=== PATIENT | female | born 1955 | race Caucasian/White ===

== ENCOUNTER 2021-05-09 12:48 | Inpatient (IN) ==
[2021-05-09] MEDS ORDERED: IOPAMIDOL 100 ML BOTTLE IV ONE (12:49)
[2021-05-09] MEDS ORDERED: ACETAMINOPHEN 325 MG TABLET PO ONE (13:09)
--- NOTE | 2021-05-09 13:11 | Emergency Department Note ---
SOB HPI General Chief Complaint: Shortness of Breath/Dyspnea Stated Complaint: shortness of breath, low O2 sats Time Seen by Provider: 05/09/21 13:01 Source: patient Mode of arrival: wheelchair Limitations: no limitations History of Present Illness HPI Narrative: 66-year-old female with no past medical history presenting with shortness of breath. She states over the last 3 days she has gotten more progressively short of breath with associated chills and a nonproductive cough. Denies chest pain. No sick contacts. She went to urgent care today and was noted to be hypoxic so sent to the ED. Patient has not received the Covid vaccine. Denies any prior heart or lung problems. No headache, neck pain, back pain, abdominal pain, dysuria, or leg swelling. No recent travel. Non-smoker, no drug or alcohol use. Her reportedly tested positive for Covid recently. Related Data Home Medications Medication Instructions Recorded Confirmed aspirin 81 mg tablet,delayed 81 mg PO QDAY 05/23/19 05/09/21 release calcium carbonate 600 mg calcium 600 mg PO QDAY 05/23/19 05/09/21 (1,500 mg) tablet cholecalciferol (vitamin D3) 10 400 unit PO QDAY 05/23/19 05/09/21 mcg (400 unit) capsule vitamin B complex 1 tab PO QDAY 05/23/19 05/09/21 Previous Rx's Medication Instructions Recorded levothyroxine 25 mcg tablet 25 mcg PO QDAY #90 tab 04/06/21 lisinopril 10 mg tablet 10 mg PO QAM #30 tab 04/20/21 Allergies Allergy/AdvReac Type Severity Reaction Status Date / Time No Known Drug Allergies Allergy Unknown NONE Verified 05/09/21 12:53 [NO KNOWN DRUG ALLERGIES] Review of Systems ROS ROS Narrative: Narrative: Constitutional: Reports fever and chills Eyes: Denies vision change ENT ED: Denies ear pain and throat pain Cardiovascular: Denies chest pain and palpitations Respiratory: Reports shortness of breath and cough; Denies hemoptysis Gastrointestinal: Denies abdominal pain, nausea and vomiting Genitourinary: Denies dysuria and frequency Musculoskeletal: Denies back pain and joint swelling Integumentary: Denies rash and lesions Neurological: Denies headache and weakness Psychiatric: Denies anxiety and depression Endocrine: Denies fatigue and heat or cold intolerance Hematological/Lymphatic: Denies easy bleeding and easy bruising REPLACED BY [facility] Narrative Patient History Narrative: Narrative: Medical/Surgical/Family History All Active Problems (Updated 05/09/21 @ 16:52 by Jeff Kramer MD) Bilateral pneumonia (Acute) Hypoxia (Acute) Hypoxia (Acute) HTN (hypertension) (Chronic) Routine physical examination (Chronic) Skin lesion (Chronic) Weight gain (Chronic) Hyperlipidemia (Chronic) Hypothyroidism (Chronic) Actinic keratosis (Chronic) Candidiasis of skin and nails (Chronic) Medical History (Updated 05/09/21 @ 16:52 by Jeff Kramer MD) Actinic keratosis Candidiasis of skin and nails HTN (hypertension) Hyperlipidemia Hypothyroidism Routine physical examination Skin lesion Weight gain Surgical History History of colonoscopy (~10/20/18) Colonic Polyp History of D&C (~2007) Abnormal pap Family History Mother Asthma Father High blood pressure Grandmother Diabetes Grandfather Asthma Grandmother High blood pressure Social History Smoking Status: Never smoker Alcohol Intake Frequency: does not drink Substance Use: does not use Exam Narrative Narrative: Narrative: General Limitations: no limitations General appearance: Present alert and other (In mild respiratory distress) Head Head: Present atraumatic and normocephalic Eye Eye: Present normal appearance, PERRL and EOMI; Absent scleral icterus and con junctival injection ENT ENT: Present normal oropharynx and mucous membranes moist Neck Neck: Present full ROM and trachea midline; Absent meningismus, lymphadenopathy and thyromegaly Chest Chest: Present symmetric chest wall rise Respiratory Respiratory: Present respiratory distress and other (Coarse breath sounds bilaterally); Absent wheezes, stridor, accessory muscle use and prolonged expiratory phase Cardiovascular Cardiovascular: Present regular rate and normal rhythm; Absent systolic murmur and diastolic murmur Adbominal Abdominal: Present soft; Absent distention, tenderness, guarding, rebound, rigidity, organomegaly and mass Extremities Extremities: Absent pedal edema, pretibial edema and calf tenderness Back Back: Absent CVA tenderness (R), CVA tenderness (L) and spinous process tenderness Neurological Neurological: Present alert and oriented X3 Psychiatric Psychiatric: Present normal affect and normal mood Skin Skin: Present warm (WNL) and dry Course Vital Signs Vital signs: Vital Signs Temperature 101.4 F H 05/09/21 12:49 Pulse Rate 99 H 05/09/21 12:49 Respiratory Rate 30 H 05/09/21 12:49 Blood Pressure 137/74 05/09/21 12:49 Pulse Oximetry (%) 54 L 05/09/21 12:49 Temperature 101.4 F H 05/09/21 14:05 Pulse Rate 77 05/09/21 15:31 Respiratory Rate 25 H 05/09/21 15:31 Blood Pressure 109/57 05/09/21 15:31 Pulse Oximetry (%) 94 05/09/21 15:31 MDM MDM Narrative Medical decision making narrative: 66-year-old female presenting with dyspnea. On arrival to the ED she was hypoxic to 54 and febrile to 101.4F. Her saturations improved to 92% on O2 via facemask. Will obtain labs, chest x-ray, Covid and flu swabs, and reassess. Persistent hypoxia in the ED, patient transition to high flow nasal cannula and is now stable with saturations in the low to mid 90s. Chest x-ray shows bilateral pneumonia. CT chest shows no evidence of PE but is also consistent with bilateral pneumonia. Influenza and rapid Covid test are negative. Labs within normal limits. Covid PCR testing is pending. Patient covered with 1 g Rocephin and 500 mg of azithromycin IV. Plan for admission given persistent hypoxia. Discussed with admitting hospitalist, Dr. Iglesias. Lab Data Lab results reviewed: Yes I reviewed the patient's lab results. Result diagrams: 05/09/21 13:09 05/09/21 13:08 Labs: Lab Results 05/09/21 05/09/21 05/09/21 Range/Units 13:08 13:08 13:09 WBC 7.4 (4.5-11.0) K/mcL RBC 4.71 (3.59-5.38) M/mcL Hgb 13.6 (11.2-15.7) g/dL Hct 41.1 (34.1-44.9) % MCV 87.3 (80.0-100.0) fL MCH 28.9 (26.0-34.0) pg MCHC 33.1 (31.0-36.0) g/dL RDW 13.1 (11.5-14.5) % Plt Count 196 (140-440) K/mcL MPV 11.4 H (7.4-10.4) fL Neut % (Auto) 77.4 (38.0-78.0) % Lymph % (Auto) 14.8 L (15.5-49.0) % [place] % (Auto) 7.4 (1.0-12.0) % Eos % (Auto) 0.1 (0.0-7.0) % Baso % (Auto) 0.3 (0.0-2.0) % Lymph # (Auto) 1.10 L (1.50-4.80) K/mcL [place] # (Auto) 0.55 (0.10-0.90) K/mcL Eos # (Auto) 0.01 (0.00-0.70) K/mcL Baso # (Auto) 0.02 (0.00-0.30) K/mcL Absolute Neutrophils 5.76 (1.80-8.00) K/mcL VBG Lactic Acid 1.5 (0.5-2.0) mmol/L Sodium 133 (133-145) mmol/L Potassium 3.4 (3.3-5.1) mmol/L Chloride 95 L (96-108) mmol/L Carbon Dioxide 24 (22-30) mmol/L Anion Gap 14.0 (8.0-16.0) BUN 12 (8-23) mg/dL Creatinine 0.6 (0.6-1.1) mg/dL GFR Calculation 96 Glucose 134 H (70-105) mg/dL Calcium 8.7 (8.6-10.4) mg/dL Total Bilirubin 0.8 (0.1-1.0) mg/dL AST 110 H (<32) U/L ALT 95 H (<40) U/L Alkaline Phosphatase 86 (39-117) U/L Total Protein 7.2 (5.9-8.4) gm/dL Albumin 3.6 (3.2-5.2) gm/dL Globulin 3.6 (2.2-3.7) gm/dL Albumin/Globulin Ratio 1.0 (1.0-2.3) ED POC Tests ED POC Tests: KERRI - Influenza A Negative KERRI - Influenza B Negative KERRI - SARS Antigen Negative Radiology Data Radiology results reviewed: Yes I reviewed the patient's radiology results. Radiology results narrative: HISTORY: Hypoxia FINDINGS: Moderately severe diffuse alveolar infiltrates are present throughout both lungs. Right diaphragm is moderately elevated. There is no pneumothorax or pleural effusion. The heart size is normal. The cathy are obscured by surrounding consolidated lung parenchyma. IMPRESSION: Moderately severe bilateral pneumonia Interpreted and Authenticated by: Kristian Nunn 05/09/21 1527 [id number] Corporate Associate: <Electronically signed by Kristian Nunn M.D. in OV> 05/09/21 1528 Ordering Physician: Jeff Kramer M.D. Date of Service: 05/09/21 Procedure(s): CT angio chest Accession Number(s): [id number] History: Hypoxia, short of breath TECHNIQUE: Following injection of intravenous nonionic contrast the chest was scanned during the arterial phase. Sagittal, coronal and axial MIPS images were created. The radiation exposure was limited using dose reduction technology. FINDINGS: The pulmonary arteries are normal without evidence of emboli. The aorta is normal in caliber. There is no atherosclerotic disease, dissection or aneurysm. The heart is normal in size and contour. There are moderately severe diffuse bilateral groundglass alveolar infiltrates. These have a mosaic distribution. There is involvement in all lobes. No pleural effusion is present. There are a few reactive lymph nodes in the mediastinum and both cathy. Moderate fatty infiltration is present throughout the liver. There is a noncalcified 1.4 cm stone in the lumen of the gallbladder. IMPRESSION: Moderately severe bilateral pneumonia. The pattern is suggestive of Covid pneumonia. No evidence of pulmonary emboli Fatty infiltration of the liver Dr. Kramer was called with the report Interpreted and Authenticated by: Kristian Nunn 05/09/21 EKG Data EKG #1: EKG attestation: Yes I reviewed and interpreted this EKG. and Yes There are no EKG findings of acute coronary syndrome EKG results narrative: Normal sinus rhythm at [address] elevation or depression. Interpretation: no acute changes Pulse Oximetry Data Pulse Ox %: 92 Interpretation: On O2 via facemask. Discharge Plan Patient/Caregiver Discharge Instructions Pt seen by BAKER BENCH/PA only: No Clinical Impression: Bilateral pneumonia, Hypoxia Patient Disposition: Xfer As Inpt ([facility]) Condition: Fair Follow up with: Vanessa Montez ARNP [Primary Care Provider] - Prescriptions: No Action vitamin B complex [B Complex 1] tablet 1 tab PO QDAY RF: 0 aspirin 81 mg tablet,delayed release (DR/EC) 81 mg PO QDAY RF: 0 cholecalciferol (vitamin D3) 400 unit capsule 400 unit capsule 400 unit PO QDAY RF: 0 calcium carbonate 600 mg calcium (1,500 mg) tablet 600 mg PO QDAY RF: 0 lisinopril 10 mg tablet 10 mg PO QAM Qty: 30 RF: 1 levothyroxine 25 mcg tablet 25 mcg PO QDAY Qty: 90 RF: 0
[2021-05-09 13:58] LABS: ALT/SGPT 95 U/L (<40); AST/SGOT 110 U/L (<32); Albumin 3.6 gm/dL (3.2-5.2); Alkaline Phosphatase 86 U/L (39-117); Bilirubin,Total 0.8 mg/dL (0.1-1.0); Blood Urea Nitrogen 12 mg/dL (8-23); Calcium 8.7 mg/dL (8.6-10.4); Carbon Dioxide 24 mmol/L (22-30); Chloride 95 mmol/L (96-108); Globulin 3.6 gm/dL (2.2-3.7); Glomerular Filtration Rate 96; Glucose 134 mg/dL (70-105)
[2021-05-09 14:21] LABS: Basophils # (Auto) 0.02 K/mcL (0.00-0.30); Basophils % (Auto) 0.3 % (0.0-2.0); Eosinophils # (Auto) 0.01 K/mcL (0.00-0.70); Eosinophils % (Auto) 0.1 % (0.0-7.0); Hematocrit 41.1 % (34.1-44.9); Hemoglobin 13.6 g/dL (11.2-15.7); Lymphocytes % (Auto) 14.8 % (15.5-49.0); Mean Cell Volume 87.3 fL (80.0-100.0); Mean Corpuscular HGB Conc 33.1 g/dL (31.0-36.0); Mean Platelet Volume 11.4 fL (7.4-10.4); Monocytes # (Auto) 0.55 K/mcL (0.10-0.90); Monocytes % (Auto) 7.4 % (1.0-12.0); Neutrophils % (Auto) 77.4 % (38.0-78.0); Platelet Count 196 K/mcL (140-440); RBC 4.71 M/mcL (3.59-5.38); Red Cell Distribution Width 13.1 % (11.5-14.5); WBC 7.4 K/mcL (4.5-11.0)
--- NOTE | 2021-05-09 15:22 | Cat Scan Report ---
History: Hypoxia, short of breath TECHNIQUE: Following injection of intravenous nonionic contrast the chest was scanned during the arterial phase. Sagittal, coronal and axial MIPS images were created. The radiation exposure was limited using dose reduction technology. FINDINGS: The pulmonary arteries are normal without evidence of emboli. The aorta is normal in caliber. There is no atherosclerotic disease, dissection or aneurysm. The heart is normal in size and contour. There are moderately severe diffuse bilateral groundglass alveolar infiltrates. These have a mosaic distribution. There is involvement in all lobes. No pleural effusion is present. There are a few reactive lymph nodes in the mediastinum and both cathy. Moderate fatty infiltration is present throughout the liver. There is a noncalcified 1.4 cm stone in the lumen of the gallbladder. IMPRESSION: Moderately severe bilateral pneumonia. The pattern is suggestive of Covid pneumonia. No evidence of pulmonary emboli Fatty infiltration of the liver Dr. Kramer was called with the report Interpreted and Authenticated by: Kristian Nunn 05/09/21
--- NOTE | 2021-05-09 15:32 | XRay Report ---
HISTORY: Hypoxia FINDINGS: Moderately severe diffuse alveolar infiltrates are present throughout both lungs. Right diaphragm is moderately elevated. There is no pneumothorax or pleural effusion. The heart size is normal. The cathy are obscured by surrounding consolidated lung parenchyma. IMPRESSION: Moderately severe bilateral pneumonia Interpreted and Authenticated by: Kristian Nunn 05/09/21
[2021-05-09] MEDS ORDERED: AZITHROMYCIN 500 MG in DEXTROSE 5% IN WATER 250 ML IV ONE (15:35)
[2021-05-09] MEDS ORDERED: cefTRIAXone 1 GM VIAL IV ONE (15:35)
--- NOTE | 2021-05-09 18:23 | Internal Med History&Physical ---
HPI History of Present Illness Patient information: Note initiated : 05/09/21 at 6:23 pm Service Date, if different from initiated Date: [] Patient: Nelly Villegas a 66 y/o F admitted on for shortness of breath, low O2 sats. Chief Complaint: dyspnea History of present illness: Ms. Villegas is a 66 year old F with a history of hypertension, hypothyroidism, untreated hyperlipidemia who presents to the hospital with worsening dyspnea. History is obtained in discussing with the patient as well as the ED physician. The patient states she started feeling ill about 10/5 initially with mild URI type symptoms. A few days later she had significant myalgias as well as shortness of breath. Her had similar symptoms and he eventually tested positive for COVID-19. She feels like she is never recovered from that episode. However over the last few days she has become more dyspneic, having a cough that has been unproductive of sputum. Because of the ongoing dyspnea she presented to minor care where her sats were in the 50% range. She is referred to the ED. Oxygen saturations were 70% on room air. She is placed on facemask with saturations into the low 90s. Further evaluation in the ED revealed normal white count, normal renal function. Chest x-ray showed bilateral infiltrates and CT of the chest again redemonstrated bilateral pneumonia without pulmonary emboli. SARS-CoV-2 rapid antigen was negative as was Roel PCR. Patient is noted she has lost her sense of taste and smell, has not returned. She has cough without sputum and dyspnea at rest and with exertion. She has had no diarrhea or abdominal pain. No headache, sore throat, vision changes, chest pain or tightness, lower extremity edema, dysuria, easy bruising or bleeding. Review of Systems All systems: reviewed and no additional remarkable complaints except as stated PFSH PFSH All Active Problems (Updated 05/09/21 @ 16:52 by Jeff Kramer MD) Bilateral pneumonia (Acute) Hypoxia (Acute) Hypoxia (Acute) HTN (hypertension) (Chronic) Routine physical examination (Chronic) Skin lesion (Chronic) Weight gain (Chronic) Hyperlipidemia (Chronic) Hypothyroidism (Chronic) Actinic keratosis (Chronic) Candidiasis of skin and nails (Chronic) Medical History (Updated 05/09/21 @ 16:52 by Jeff Kramer MD) Actinic keratosis Candidiasis of skin and nails HTN (hypertension) Hyperlipidemia Hypothyroidism Routine physical examination Skin lesion Weight gain Surgical History History of colonoscopy (~10/20/18) Colonic Polyp History of D&C (~2007) Abnormal pap Family History Mother Asthma Father High blood pressure Grandmother Diabetes Grandfather Asthma Grandmother High blood pressure Social History marital status: physical activity: walking frequency: 3-4 times per week alcohol intake frequency: does not drink substance use type: does not use seatbelt use: always MEDS/ALLERGIES Home Medications and Allergies Home Medications Medication Instructions Recorded Confirmed Type aspirin 81 mg tablet,delayed 81 mg PO QDAY 05/23/19 05/09/21 History release calcium carbonate 600 mg calcium 600 mg PO QDAY 05/23/19 05/09/21 History (1,500 mg) tablet cholecalciferol (vitamin D3) 10 400 unit PO QDAY 05/23/19 05/09/21 History mcg (400 unit) capsule vitamin B complex 1 tab PO QDAY 05/23/19 05/09/21 History levothyroxine 25 mcg tablet 25 mcg PO QDAY #90 tab 04/06/21 05/09/21 Rx lisinopril 10 mg tablet 10 mg PO QAM #30 tab 04/20/21 05/09/21 Rx Allergies Allergy/AdvReac Type Severity Reaction Status Date / Time No Known Drug Allergies Allergy Unknown NONE Verified 05/09/21 12:53 [NO KNOWN DRUG ALLERGIES] EXAM Constitutional Vitals: Temp Pulse Resp BP Pulse Ox 101.4 F H 72 18 105/65 90 05/09/21 14:05 05/09/21 18:16 05/09/21 18:16 05/09/21 18:16 05/09/21 18:16 GENERAL: Alert, oriented, looks comfortable on [facility]. HEENT: Pupils equal at 3 mm, conjunctiva clear, no scleral icterus. Hearing grossly intact. Oropharynx with moist mucous membranes, tongue midline. NECK: Supple without meningismus, no thyromegaly RESPIRATORY: Crackles bilaterally in upper and lower lung nunez, respirations mildly labored.. CARDIOVASCULAR: Regular rate and rhythm, no murmur gallop or rub. No peripheral edema. Carotid pulses 2+. GI: Abdomen soft, nontender, no guarding or rebound. Bowel sounds are present. MUSCULOSKELETAL: No joint erythema or swelling, normal range of motion in all extremities. SKIN: Intact, warm, dry. No lesions. Skin turgor decreased. NEUROLOGIC: Cranial nerves II through XII grossly intact. Muscle mass normal. Strength 5/5 in the upper and lower extremities. Sensation intact to light touch bilaterally. PSYCHIATRIC: Alert, oriented x3, normal mood and affect, normal insight. DATA Data Completed and Pending Labs: Labs from last 24 hours 05/09/21 05/09/21 05/09/21 13:09 13:08 13:08 WBC 7.4 RBC 4.71 Hgb 13.6 Hct 41.1 MCV 87.3 MCH 28.9 MCHC 33.1 RDW 13.1 Plt Count 196 MPV 11.4 H Neut % (Auto) 77.4 Lymph % (Auto) 14.8 L [place] % (Auto) 7.4 Eos % (Auto) 0.1 Baso % (Auto) 0.3 Lymph # (Auto) 1.10 L [place] # (Auto) 0.55 Eos # (Auto) 0.01 Baso # (Auto) 0.02 Absolute Neutrophils 5.76 VBG Lactic Acid Sodium Potassium Chloride Carbon Dioxide Anion Gap BUN Creatinine GFR Calculation Glucose Calcium Total Bilirubin AST ALT Alkaline Phosphatase C-Reactive Protein Pending Total Protein Albumin Globulin Albumin/Globulin Ratio Procalcitonin Pending 05/09/21 05/09/21 13:08 13:08 WBC RBC Hgb Hct MCV MCH MCHC RDW Plt Count MPV Neut % (Auto) Lymph % (Auto) [place] % (Auto) Eos % (Auto) Baso % (Auto) Lymph # (Auto) [place] # (Auto) Eos # (Auto) Baso # (Auto) Absolute Neutrophils VBG Lactic Acid 1.5 Sodium 133 Potassium 3.4 Chloride 95 L Carbon Dioxide 24 Anion Gap 14.0 BUN 12 Creatinine 0.6 GFR Calculation 96 Glucose 134 H Calcium 8.7 Total Bilirubin 0.8 AST 110 H ALT 95 H Alkaline Phosphatase 86 C-Reactive Protein Total Protein 7.2 Albumin 3.6 Globulin 3.6 Albumin/Globulin Ratio 1.0 Procalcitonin Imaging and Cardiology CT scan - chest: Status: image reviewed by me Additional comments: IMPRESSION: Moderately severe bilateral pneumonia. The pattern is suggestive of Covid pneumonia. No evidence of pulmonary emboli Fatty infiltration of the liver A/P Narrative A/P Narrative: 66-year-old female presents with worsening dyspnea, acutely over the last 3 days, found to be significantly hypoxic with bilateral pneumonia worrisome for COVID-19 Pneumonia, suspected to COVID-19 -Bilateral groundglass opacities -Clinically loss of taste and smell and prior symptoms consistent with COVID-19 -Negative rapid antigen and PCR, though with symptom onset 04/14, may have cleared nasopharyngeal virus -Less concern for concurrent bacterial pneumonia with procalcitonin 0.13 -Given duration of illness, remdesivir likely not helpful -As COVID-19 pneumonia highly suspected, dexamethasone would benefit -Covering for community-acquired pneumonia and atypicals as well Transaminitis -AST and ALT mildly elevated -Suspect secondary to COVID-19 infection Hypertension -On lisinopril at home, no indication to hold [place] inhibitors and COVID-19 Hypothyroidism -On levothyroxine Elevated glucose without diagnosis of diabetes -Noted on admission chemistries -May be secondary to stress -We will need to monitor with glucocorticoid treatment Plan: Inpatient admission Respiratory support with HFNC and/or BiPAP as needed Begin dexamethasone 6 mg daily Continue ceftriaxone and azithromycin Lower threshold to stop antibiotics if procalcitonin remains <0.5 If less concern for bacterial infection, consider tocilizumab if worsening Monitor glucose on a.m. chemistries, if significant elevated begin Accu-Cheks and SSI Prophylaxis: Enoxaparin CODE STATUS: Full code
[2021-05-09] MEDS ORDERED: SENNOSIDES 1 TABLET PO PRN (20:24)
[2021-05-09] MEDS ORDERED: ONDANSETRON 4 MG/2 ML VIAL IV PRN (20:24)
[2021-05-09] MEDS ORDERED: cefTRIAXone 1 GM in DEXTROSE 5% IN WATER 50 ML IV SCH (20:24)
[2021-05-09] MEDS ORDERED: LACTULOSE 20 GM/30 ML ORAL.SOL PO PRN (20:24)
[2021-05-09] MEDS: 0.9 % SODIUM CHLORIDE 1,000 ML IV SCH (21:20)
[2021-05-09] MEDS: DEXAMETHASONE 10 MG/ML VIAL IV SCH (21:20)
[2021-05-09] MEDS: 0.9 % SODIUM CHLORIDE 10 ML SYRINGE IV SCH (21:20)
[2021-05-09] MEDS ORDERED: guaiFENesin/DEXTROMETHORPHAN ORAL SOL ONE (23:13)
[2021-05-09] MEDS: BENZONATATE 100 MG CAPSULE PO PRN (23:22)
[2021-05-09] MEDS: guaiFENesin/CODEINE 10 ML UDC PO PRN (23:23)
[2021-05-10] MEDS ORDERED: guaiFENesin/DEXTROMETHORPHAN ORAL SOL ONE (05:13)
[2021-05-10] MEDS: 0.9 % SODIUM CHLORIDE 10 ML SYRINGE IV SCH ×4 (06:18→20:02)
[2021-05-10] MEDS: guaiFENesin/CODEINE 10 ML UDC PO PRN ×2 (06:18→20:01)
[2021-05-10 06:53] LABS: Basophils # (Auto) 0.01 K/mcL (0.00-0.30); Basophils % (Auto) 0.2 % (0.0-2.0); Eosinophils # (Auto) 0 K/mcL (0.00-0.70); Eosinophils % (Auto) 0 % (0.0-7.0); Lymphocytes % (Auto) 10.7 % (15.5-49.0); Mean Cell Volume 88.5 fL (80.0-100.0); Mean Corpuscular HGB Conc 32.5 g/dL (31.0-36.0); Mean Platelet Volume 11.1 fL (7.4-10.4); Monocytes # (Auto) 0.21 K/mcL (0.10-0.90); Monocytes % (Auto) 3.2 % (1.0-12.0); Neutrophils % (Auto) 85.9 % (38.0-78.0); Platelet Count 211 K/mcL (140-440); RBC 4.52 M/mcL (3.59-5.38); WBC 6.6 K/mcL (4.5-11.0)
[2021-05-10 07:16] LABS: ALT/SGPT 130 U/L (<40); AST/SGOT 154 U/L (<32); Albumin 3.3 gm/dL (3.2-5.2); Albumin/Globulin Ratio 0.9 (1.0-2.3); Alkaline Phosphatase 91 U/L (39-117); Bilirubin,Direct 0.2 mg/dL (<0.3); Bilirubin,Total 0.6 mg/dL (0.1-1.0); Blood Urea Nitrogen 12 mg/dL (8-23); Calcium 8.8 mg/dL (8.6-10.4); Carbon Dioxide 25 mmol/L (22-30); Chloride 98 mmol/L (96-108); Globulin 3.5 gm/dL (2.2-3.7); Glomerular Filtration Rate 101; Glucose 159 mg/dL (70-105); Lactate Dehydrogenase 536 U/L (135-225); Phosphorous 2.3 mg/dL (2.5-4.5); Triglycerides 77 mg/dL (<150); Uric Acid 4.6 mg/dL (2.5-8.0)
[2021-05-10] MEDS: cefTRIAXone 1 GM VIAL IV SCH (08:05)
[2021-05-10] MEDS: ENOXAPARIN 40 MG/0.4 ML SYRINGE SQ SCH (08:05)
[2021-05-10] MEDS: PANTOPRAZOLE 40 MG TABLET PO SCH (08:05)
[2021-05-10] MEDS: LISINOPRIL 10 MG TABLET PO SCH (08:05)
[2021-05-10] MEDS: LEVOTHYROXINE 25 MCG TABLET PO SCH (08:05)
--- NOTE | 2021-05-10 08:09 | Internal Med Progress Note ---
SUBJECTIVE Subjective Patient information: Note initiated : 05/10/21 at 8:09 am Service Date, if different from initiated Date: [] Patient: Nelly Villegas 66 y/o F admitted on 05/09/21 for shortness of breath, low O2 sats. Chief Complaint: Follow-up presumptive COVID-19 pneumonia and acute respiratory failure Interval history: Ms. Villegas is a 66 year old F with a history of hypertension, hypothyroidism, untreated hyperlipidemia who presents to the hospital with worsening dyspnea. History is obtained in discussing with the patient as well as the ED physician. The patient states she started feeling ill about 10/5 initially with mild URI type symptoms. A few days later she had significant myalgias as well as shortness of breath. Her had similar symptoms and he eventually tested positive for COVID-19. She feels like she is never recovered from that episode. However over the last few days she has become more dyspneic, having a cough that has been unproductive of sputum. Because of the ongoing dyspnea she presented to minor care where her sats were in the 50% range. She is referred to the ED. Oxygen saturations were 70% on room air. She is placed on facemask with saturations into the low 90s. Further evaluation in the ED revealed normal white count, normal renal function. Chest x-ray showed bilateral infiltrates and CT of the chest again redemonstrated bilateral pneumonia without pulmonary emboli. SARS-CoV-2 rapid antigen was negative as was Roel PCR. Patient is noted she has lost her sense of taste and smell, has not returned. She has cough without sputum and dyspnea at rest and with exertion. She has had no diarrhea or abdominal pain. No headache, sore throat, vision changes, chest pain or tightness, lower extremity edema, dysuria, easy bruising or bleeding. 05/09: Patient remained on BiPAP overnight, currently 15/8 at 80% FiO2. Procalcitonin remains <0.5 this morning, as it was yesterday. C-reactive protein remains greater than 12. [place] SARS-CoV-2 assay is pending. Patient still with dyspnea, particularly with exertion. Trying to prone, though it has been difficult. Cough, no sputum, no chest pain. No nausea. Tolerating BiPAP. Constitutional Vitals: Vital Signs Temp Pulse Resp BP Pulse Ox 98.4 F 80 25 H 115/71 90 05/10/21 04:00 05/10/21 06:59 05/10/21 06:59 05/10/21 05:12 05/10/21 06:59 Period Temp Pulse Resp BP Sys/Farias Pulse Ox Last 24 Hr 98.3 F-101.4 F 66-99 13-36 95-143/53-93 54-95 Intake and Output 05/09/21 05/10/21 05/10/21 21:59 05:59 13:59 Intake Total 250 240 0 Output Total 302 Balance 250 -62 0 Weight 188 lb 14.4 oz Intake & Output: Intake & Output 05/09/21 05/10/21 05/10/21 21:59 05:59 13:59 Intake Total 250 240 0 Output Total 302 Balance 250 -62 0 Weight 188 lb 14.4 oz Intake: IV 250 Zithromax 500 mg In Dextrose 5% 250 in Water 250 ml @ 250 mls/hr IV ONCE ONE Rx#:[id number] Oral 240 0 Output: Void Amount 300 # of times incontinent of urine 2 Other: Urine Appearance Clear Urine Color Dark Susy Urine Odor Strong GENERAL: In bed on BiPAP, nontoxic-appearing RESPIRATORY: Bilateral crackles in all lung nunez, respirations assisted with BiPAP CARDIOVASCULAR: Regular rate and rhythm, no peripheral edema ABDOMEN: Soft, nontender EXTREMITIES: Warm, perfused, no edema NEURO: Alert, oriented x3, moves all extremities OBJ DATA Labs CBC & Chem 7: 05/10/21 05:02 05/10/21 05:02 Labs: Abnormal Lab Results 05/10/21 05/10/21 05/10/21 05:03 05:02 05:02 MPV 11.1 H Neut % (Auto) 85.9 H Lymph % (Auto) 10.7 L Lymph # (Auto) 0.70 L Chloride Creatinine 0.5 L Glucose 159 H Phosphorus 2.3 L GGT 63 H AST 154 H ALT 130 H Lactate Dehydrogenase 536 H C-Reactive Protein 12.20 H Albumin/Globulin Ratio 0.9 L Procalcitonin 0.13 H 05/09/21 05/09/21 05/09/21 13:09 13:08 13:08 MPV 11.4 H Neut % (Auto) Lymph % (Auto) 14.8 L Lymph # (Auto) 1.10 L Chloride Creatinine Glucose Phosphorus GGT AST ALT Lactate Dehydrogenase C-Reactive Protein 12.10 H Albumin/Globulin Ratio Procalcitonin 0.13 H 05/09/21 13:08 MPV Neut % (Auto) Lymph % (Auto) Lymph # (Auto) Chloride 95 L Creatinine Glucose 134 H Phosphorus GGT AST 110 H ALT 95 H Lactate Dehydrogenase C-Reactive Protein Albumin/Globulin Ratio Procalcitonin Meds: Medications Acetaminophen (Acetaminophen 325 Mg Tablet) 650 mg PO Q6HP PRN; Protocol PRN Reason: Per Pain Protocol/Fever > 101 Benzonatate (Benzonatate 100 Mg Capsule) 100 mg PO TIDP PRN PRN Reason: Cough Last Admin: 05/09/21 23:22 Dose: 100 mg Documented by: Ceftriaxone Sodium (Ceftriaxone 1 Gm Vial) 1 gm IV Q24H [facility] Last Admin: 05/10/21 08:05 Dose: 1 gm Documented by: Dexamethasone (Dexamethasone 10 Mg/Ml Vial) 6 mg IV Q24H [facility] Last Admin: 05/09/21 21:20 Dose: 6 mg Documented by: Enoxaparin Sodium (Enoxaparin 40 Mg/0.4 Ml Syringe) 40 mg SQ DAILY [facility] Last Admin: 05/10/21 08:05 Dose: 40 mg Documented by: Guaifenesin/Codeine Phosphate (Guaifenesin/Codeine 10 Ml Udc) 5 ml PO Q4HP PRN PRN Reason: Cough Last Admin: 05/10/21 06:18 Dose: 5 ml Documented by: Sodium Chloride (Sodium Chloride 0.9%) 1,000 mls @ 75 mls/hr IV .[id number] [facility] Last Admin: 05/09/21 21:20 Dose: 75 mls/hr Documented by: Azithromycin 500 mg/ Dextrose 250 mls @ 250 mls/hr IV Q24H [facility]; Protocol Stop: 05/12/21 10:59 Lactulose (Lactulose 20 Gm/30 Ml Oral.Lana) 10 gm PO DAILYP PRN PRN Reason: Constipation Levothyroxine Sodium (Levothyroxine 25 Mcg Tablet) 25 mcg PO QAMAC [facility] Last Admin: 05/10/21 08:05 Dose: 25 mcg Documented by: Lisinopril (Lisinopril 10 Mg Tablet) 10 mg PO QAM [facility] Last Admin: 05/10/21 08:05 Dose: 10 mg Documented by: Ondansetron HCl (Ondansetron 4 Mg/2 Ml Vial) 4 mg IV Q4HP PRN; Protocol PRN Reason: Nausea And Vomiting Pantoprazole Sodium (Pantoprazole 40 Mg Tablet) 40 mg PO QAMAC [facility] Last Admin: 05/10/21 08:05 Dose: 40 mg Documented by: Senna (Sennosides 1 Tablet) 2 tab PO HSP PRN PRN Reason: Constipation Sodium Chloride (0.9 % Sodium Chloride 10 Ml Syringe) 10 ml IV Q8 [facility] Last Admin: 05/10/21 06:18 Dose: Not Given Documented by: A/P Narrative A/P Narrative: 66-year-old female presents with worsening dyspnea, acutely over the last 3 days, found to be significantly hypoxic with bilateral pneumonia worrisome for COVID-19 Pneumonia, presumptive COVID-19 -Bilateral groundglass opacities -Clinically loss of taste and smell and prior symptoms consistent with COVID-19 -Negative rapid antigen and PCR, though with symptom onset 04/14, may have cleared nasopharyngeal virus -Less concern for concurrent bacterial pneumonia with procalcitonin 0.13, repeat at 0.10 -Given duration of illness, remdesivir likely not helpful -As COVID-19 pneumonia highly suspected, dexamethasone would benefit -Covering for community-acquired pneumonia and atypicals as well -Given severity of illness and low suspicion for bacterial infection, will give tocilizumab 05/10 Transaminitis -AST and ALT mildly elevated -Suspect secondary to COVID-19 infection Hypertension -On lisinopril at home, no indication to hold YK inhibitors and COVID-19 Hypothyroidism -On levothyroxine Elevated glucose without diagnosis of diabetes -Noted on admission chemistries -May be secondary to stress -We will need to monitor with glucocorticoid treatment Plan: * Continue with BiPAP, wean as tolerated * Continue dexamethasone 6 mg daily * Tocilizumab 8 mg/KG x1 today * Continue ceftriaxone and azithromycin * Lower threshold to stop antibiotics if procalcitonin remains <0.5 * Monitor glucose on a.m. chemistries, if significant elevated begin Accu-Cheks and SSI * Monitor liver enzymes * Replete phosphorus orally today, x2 doses Time Spent With Patient Time: Total time spent is greater than 50% in coordination of care (as documented) at patient's floor/unit and/or counseling patient: Total time spent with greater than 50% in coordination of care (as documented) at patient's floor/unit and/or counseling patient:: Greater than 35 minutes QUALITY VTE Deep Vein Thrombosis/Pulmonary Embolism Present on Admission: No
[2021-05-10] MEDS: 0.9 % SODIUM CHLORIDE 1,000 ML IV SCH ×2 (09:47→11:45)
[2021-05-10] MEDS: PHOSPHORUS 250 MG TABLET PO SCH ×2 (10:07→20:02)
[2021-05-10] MEDS: AZITHROMYCIN 500 MG in DEXTROSE 5% IN WATER 250 ML IV SCH (10:07)
[2021-05-10] MEDS ORDERED: TOCILIZUMAB IV ONE (11:00)
[2021-05-10] MEDS ORDERED: SODIUM CHLORIDE 0.9% IV ONE (11:00)
[2021-05-10] MEDS: DEXAMETHASONE 10 MG/ML VIAL IV SCH (20:02)
[2021-05-10] MEDS: ACETAMINOPHEN 325 MG TABLET PO PRN (20:02)
[2021-05-10] MEDS: BENZONATATE 100 MG CAPSULE PO PRN (20:02)
[2021-05-11] MEDS: BENZONATATE 100 MG CAPSULE PO PRN ×2 (01:02→20:26)
[2021-05-11] MEDS: guaiFENesin/CODEINE 10 ML UDC PO PRN ×3 (01:02→20:26)
[2021-05-11] MEDS: 0.9 % SODIUM CHLORIDE 10 ML SYRINGE IV SCH ×3 (05:13→20:26)
[2021-05-11 07:50] LABS: Albumin 3.1 gm/dL (3.2-5.2); Blood Urea Nitrogen 17 mg/dL (8-23); Calcium 9.2 mg/dL (8.6-10.4); Carbon Dioxide 26 mmol/L (22-30); Chloride 102 mmol/L (96-108); Glomerular Filtration Rate 101; Glucose 145 mg/dL (70-105); Phosphorous 2.7 mg/dL (2.5-4.5)
[2021-05-11 07:51] LABS: Basophils # (Auto) 0.01 K/mcL (0.00-0.30); Basophils % (Auto) 0.2 % (0.0-2.0); Eosinophils # (Auto) 0 K/mcL (0.00-0.70); Eosinophils % (Auto) 0 % (0.0-7.0); Hematocrit 39.6 % (34.1-44.9); Hemoglobin 12.6 g/dL (11.2-15.7); Lymphocytes # (Auto) 1.01 K/mcL (1.50-4.80); Lymphocytes % (Auto) 16.3 % (15.5-49.0); Mean Cell Volume 88.4 fL (80.0-100.0); Mean Corpuscular HGB Conc 31.8 g/dL (31.0-36.0); Mean Platelet Volume 11.1 fL (7.4-10.4); Monocytes # (Auto) 0.35 K/mcL (0.10-0.90); Monocytes % (Auto) 5.7 % (1.0-12.0); Neutrophils % (Auto) 77.8 % (38.0-78.0); Platelet Count 264 K/mcL (140-440); RBC 4.48 M/mcL (3.59-5.38); Red Cell Distribution Width 12.7 % (11.5-14.5); WBC 6.2 K/mcL (4.5-11.0)
[2021-05-11] MEDS: PANTOPRAZOLE 40 MG TABLET PO SCH (08:13)
[2021-05-11] MEDS: LEVOTHYROXINE 25 MCG TABLET PO SCH (08:13)
[2021-05-11] MEDS: cefTRIAXone 1 GM VIAL IV SCH (08:13)
[2021-05-11] MEDS: ENOXAPARIN 40 MG/0.4 ML SYRINGE SQ SCH ×3 (08:14→20:26)
[2021-05-11] MEDS: LISINOPRIL 10 MG TABLET PO SCH (08:14)
[2021-05-11] MEDS: AZITHROMYCIN 500 MG in DEXTROSE 5% IN WATER 250 ML IV SCH (10:54)
--- NOTE | 2021-05-11 15:51 | Internal Med Progress Note ---
SUBJECTIVE Subjective Patient information: Note initiated : 05/11/21 at 3:50 pm Service Date, if different from initiated Date: [] Patient: Nelly Villegas 66 y/o F admitted on 05/09/21 for shortness of breath, low O2 sats. Chief Complaint: [dyspnea] Principal diagnosis: Covid 19 Pneumonia Interval history: History of present illness: Ms. Villegas is a 66 year old F with a history of hypertension, hypothyroidism, untreated hyperlipidemia who presents to the hospital with worsening dyspnea. History is obtained in discussing with the patient as well as the ED physician. The patient states she started feeling ill about 10/5 initially with mild URI type symptoms. A few days later she had significant myalgias as well as shortness of breath. Her had similar symptoms and he eventually tested positive for COVID-19. She feels like she is never recovered from that episode. However over the last few days she has become more dyspneic, having a cough that has been unproductive of sputum. Because of the ongoing dyspnea she presented to minor care where her sats were in the 50% range. She is referred to the ED. Oxygen saturations were 70% on room air. She is placed on facemask with saturations into the low 90s. Further evaluation in the ED revealed normal white count, normal renal function. Chest x-ray showed bilateral infiltrates and CT of the chest again redemonstrated bilateral pneumonia without pulmonary emboli. SARS-CoV-2 rapid antigen was negative as was Roel PCR. Patient is noted she has lost her sense of taste and smell, has not returned. She has cough without sputum and dyspnea at rest and with exertion. Denies diarrhea but stool was lose today. No nausea but appetite is poor. Says she didnt have the covid vaccination. after recovery also doesnt want vaccination. She did allow me to counselor her as follow. if recover from covid infection 70% resistant to severe recurrent covid illness. if vaccinated 80% immune after one vaccination and 95% with two. So if vaccinated just once after she recovers will likely improve her to 90+ % immune to severe illness Pertinent ROS: no chest pain Additional PMFSH (Level 3 Only): hypothyroidism obesity Constitutional Vitals: Vital Signs Temp Pulse Resp BP Pulse Ox 97.3 F 61 24 H 121/49 96 05/11/21 12:01 05/11/21 14:00 05/11/21 14:00 05/11/21 12:01 05/11/21 14:00 Period Temp Pulse Resp BP Sys/Farias Pulse Ox Last 24 Hr 96.6 F-98.0 F 48-82 17-37 107-129/48-101 87-97 Intake and Output 05/11/21 05/11/21 05/11/21 05:59 13:59 21:59 Intake Total 460 250 Output Total 300 150 Balance 160 100 Weight 86.228 kg 86.228 kg Patient Weight 05/12/21 05:59 Weight 86.228 kg Intake & Output: Intake & Output 05/11/21 05/11/21 05/11/21 05:59 13:59 21:59 Intake Total 460 250 Output Total 300 150 Balance 160 100 Weight 86.228 kg 86.228 kg Intake: IV 250 Zithromax 500 mg In Dextrose 5% 250 in Water 250 ml @ 250 mls/hr IV Q24H [facility] Rx#:[id number] Oral 460 Output: Urine Catheter Amount 150 Urine/Stool Mix 300 Other: Urine Appearance Clear Urine Color Bright Yellow Stool Size Small Stool Color Brown Stool Consistency Donna Loose # Bowel Movements 1 Additional findings Additional findings: GEN WDWN obese WF laying on right side. no distress on oxygen CV RRR Lungs few scattered rhonchi no significant crackles or wheezing Abd soft NTND calves no edema Mentation alert oriented and pleasant OBJ DATA Labs CBC & Chem 7: 05/11/21 05:23 05/11/21 05:23 Labs: Abnormal Lab Results 05/11/21 05/11/21 05/10/21 05:23 05:23 05:03 MPV 11.1 H Neut % (Auto) Lymph % (Auto) Lymph # (Auto) 1.01 L Chloride Creatinine 0.5 L Glucose 145 H Phosphorus GGT AST ALT Lactate Dehydrogenase C-Reactive Protein 7.70 H Albumin 3.1 L Albumin/Globulin Ratio Procalcitonin 0.13 H 05/10/21 05/10/21 05/09/21 05:02 05:02 13:09 MPV 11.1 H 11.4 H Neut % (Auto) 85.9 H Lymph % (Auto) 10.7 L 14.8 L Lymph # (Auto) 0.70 L 1.10 L Chloride Creatinine 0.5 L Glucose 159 H Phosphorus 2.3 L GGT 63 H AST 154 H ALT 130 H Lactate Dehydrogenase 536 H C-Reactive Protein 12.20 H Albumin Albumin/Globulin Ratio 0.9 L Procalcitonin 05/09/21 05/09/21 05/09/21 13:08 13:08 13:08 MPV Neut % (Auto) Lymph % (Auto) Lymph # (Auto) Chloride 95 L Creatinine Glucose 134 H Phosphorus GGT AST 110 H ALT 95 H Lactate Dehydrogenase C-Reactive Protein 12.10 H Albumin Albumin/Globulin Ratio Procalcitonin 0.13 H Meds: Medications Acetaminophen (Acetaminophen 325 Mg Tablet) 650 mg PO Q6HP PRN; Protocol PRN Reason: Per Pain Protocol/Fever > 101 Last Admin: 05/10/21 20:02 Dose: 650 mg Documented by: Benzonatate (Benzonatate 100 Mg Capsule) 100 mg PO TIDP PRN PRN Reason: Cough Last Admin: 05/11/21 01:02 Dose: 100 mg Documented by: Ceftriaxone Sodium (Ceftriaxone 1 Gm Vial) 1 gm IV Q24H [facility] Last Admin: 05/11/21 08:13 Dose: 1 gm Documented by: Dexamethasone (Dexamethasone 10 Mg/Ml Vial) 6 mg IV Q24H [facility] Last Admin: 05/10/21 20:02 Dose: 6 mg Documented by: Enoxaparin Sodium (Enoxaparin 40 Mg/0.4 Ml Syringe) 40 mg SQ BID [facility] Last Admin: 05/11/21 10:56 Dose: Not Given Documented by: Guaifenesin/Codeine Phosphate (Guaifenesin/Codeine 10 Ml Udc) 5 ml PO Q4HP PRN PRN Reason: Cough Last Admin: 05/11/21 05:12 Dose: 5 ml Documented by: Azithromycin 500 mg/ Dextrose 250 mls @ 250 mls/hr IV Q24H [facility]; Protocol Stop: 05/12/21 10:59 Last Infusion: 05/11/21 12:11 Dose: Infused Documented by: Lactulose (Lactulose 20 Gm/30 Ml Oral.Lana) 10 gm PO DAILYP PRN PRN Reason: Constipation Levothyroxine Sodium ([facility]othyroxine 25 Mcg Tablet) [facility] Last Admin: 05/11/21 08:13 Dose: 25 mcg Documented by: Lisinopril (Lisinopril 10 Mg Tablet) [facility] Last Admin: 05/11/21 08:14 Dose: 10 mg Documented by: Ondansetron HCl (Ondansetron 4 Mg/2 Ml Vial) 4 mg IV Q4HP PRN; Protocol PRN Reason: Nausea And Vomiting Pantoprazole Sodium (Pantoprazole 40 Mg Tablet) 40 mg PO QAMAC [facility] Last Admin: 05/11/21 08:13 Dose: 40 mg Documented by: Senna (Sennosides 1 Tablet) 2 tab PO HSP PRN PRN Reason: Constipation Sodium Chloride (0.9 % Sodium Chloride 10 Ml Syringe) 10 ml IV Q8 [facility] Last Admin: 05/11/21 12:45 Dose: 10 ml Documented by: A/P Assessment and plan (1) Pneumonia due to 2019 novel coronavirus: Status: Acute Comment: hyoxemia is stable though still severe. cont high flow. repeat CXR in the morning start lovenox 40 mg sQ bid dimer and crp in morning. pt has completed tociluzimab (2) Hypothyroidism: Status: Chronic Comment: continue replacement hormone (3) Obesity (BMI 30-39.9): Status: Acute Comment: currently loss of smell taste and appetite. encourage diet supplement to maintain adequate calories to fight infection Time Spent With Patient Time: Total time spent is greater than 50% in coordination of care (as documented) at patient's floor/unit and/or counseling patient: 35mins QUALITY VTE Deep Vein Thrombosis/Pulmonary Embolism Present on Admission: No
[2021-05-11] MEDS: DEXAMETHASONE 10 MG/ML VIAL IV SCH (20:26)
[2021-05-12] MEDS: 0.9 % SODIUM CHLORIDE 10 ML SYRINGE IV SCH ×3 (06:27→20:01)
[2021-05-12 06:49] LABS: Basophils # (Auto) 0.01 K/mcL (0.00-0.30); Basophils % (Auto) 0.2 % (0.0-2.0); Eosinophils # (Auto) 0 K/mcL (0.00-0.70); Eosinophils % (Auto) 0 % (0.0-7.0); Hematocrit 41.1 % (34.1-44.9); Hemoglobin 13.3 g/dL (11.2-15.7); Lymphocytes # (Auto) 0.88 K/mcL (1.50-4.80); Lymphocytes % (Auto) 13.7 % (15.5-49.0); Mean Cell Volume 88.4 fL (80.0-100.0); Mean Corpuscular HGB Conc 32.4 g/dL (31.0-36.0); Monocytes # (Auto) 0.27 K/mcL (0.10-0.90); Monocytes % (Auto) 4.2 % (1.0-12.0); Neutrophils % (Auto) 81.9 % (38.0-78.0); Platelet Count 332 K/mcL (140-440); RBC 4.65 M/mcL (3.59-5.38); Red Cell Distribution Width 12.8 % (11.5-14.5); WBC 6.4 K/mcL (4.5-11.0)
--- NOTE | 2021-05-12 07:02 | EKG ---
[facility] Test Date: 2021-05-09 Pat Name: Nelly Villegas Department: ICU Room: 120A Gender: Female Structures Engineer: RADHA : [id number] Requested By: Belinda Iglesias Order Number: [id number] Reading MD: Ac Alex Measurements Intervals [place] Rate: 91 P: 152 AK: 172 QRS: -22 QRSD: 80 T: -22 QT: 332 QTc: 409 Interpretive Statements SINUS OR ECTOPIC ATRIAL RHYTHM PROBABLE LEFT ATRIAL ABNORMALITY ABNRM R PROG, CONSIDER ASMI OR LEAD PLACEMENT Electronically Signed On 05-12-2021 7:02:02 PDT by Ac Alex /store/[email or web address]/[id number]/[id number]
--- NOTE | 2021-05-12 07:08 | XRay Report ---
INDICATION: follow up covid pneumonia TECHNIQUE: AP portable upright chest x-ray COMPARISON: Previous examination dated 05/09/2021 FINDINGS: Lungs:Bilateral diffuse pulmonary parenchymal infiltrates. Right-sided infiltrates may be slightly improved since previous examination. No new abnormality. Heart, vascular:No significant cardiomegaly. Pulmonary vascularity is normal. No pulmonary edema or pulmonary congestion Mediastinum, cathy:No mediastinal widening. No hilar mass Pleura:Persistent elevation of the right hemidiaphragm Skeletal:Negative. IMPRESSION: 1. Bilateral pulmonary parenchymal infiltrates consistent with covid pneumonia 2. Slight interval improvement Interpreted and Authenticated by: Rogelio Goodman 05/12/21
[2021-05-12 07:34] LABS: ALT/SGPT 95 U/L (<40); AST/SGOT 46 U/L (<32); Albumin 3.1 gm/dL (3.2-5.2); Albumin/Globulin Ratio 0.9 (1.0-2.3); Alkaline Phosphatase 86 U/L (39-117); Bilirubin,Total 0.5 mg/dL (0.1-1.0); Blood Urea Nitrogen 21 mg/dL (8-23); Calcium 9.3 mg/dL (8.6-10.4); Carbon Dioxide 27 mmol/L (22-30); Chloride 102 mmol/L (96-108); Globulin 3.5 gm/dL (2.2-3.7); Glomerular Filtration Rate 96; Glucose 149 mg/dL (70-105); Thyroid Stimulating Hormone 0.24 uIU/mL (0.27-5.01)
[2021-05-12] MEDS: LISINOPRIL 10 MG TABLET PO SCH (08:01)
[2021-05-12] MEDS: cefTRIAXone 1 GM VIAL IV SCH (08:01)
[2021-05-12] MEDS: PANTOPRAZOLE 40 MG TABLET PO SCH (08:01)
[2021-05-12] MEDS: LEVOTHYROXINE 25 MCG TABLET PO SCH (08:01)
[2021-05-12] MEDS: ENOXAPARIN 40 MG/0.4 ML SYRINGE SQ SCH ×2 (08:01→19:59)
[2021-05-12] MEDS: AZITHROMYCIN 500 MG in DEXTROSE 5% IN WATER 250 ML IV SCH (10:46)
--- NOTE | 2021-05-12 17:54 | Internal Med Progress Note ---
SUBJECTIVE Subjective Patient information: Note initiated : 05/12/21 at 5:48 pm Service Date, if different from initiated Date: [] Patient: Nelly Villegas 66 y/o F admitted on 05/09/21 for shortness of breath, low O2 sats. Chief Complaint: [] Principal diagnosis: Covid 19 Pneumonia Interval history: pt say eating better, taste and smell are coming back. feels ok now just bored with prolonged illness. Pertinent ROS: GI no diarrhea today no vomiting Additional PMFSH (Level 3 Only): obesity hypertension hypothyroidism Constitutional Vitals: Vital Signs Temp Pulse Resp BP Pulse Ox 97.7 F 58 L 23 H 122/80 94 05/12/21 16:01 05/12/21 16:01 05/12/21 16:21 05/12/21 16:01 05/12/21 16:21 Period Temp Pulse Resp BP Sys/Farias Pulse Ox Last 24 Hr 97.0 F-98.7 F 52-72 16-32 106-145/50-103 90-96 Intake and Output 05/12/21 05/12/21 05/12/21 05:59 13:59 21:59 Intake Total 240 250 Output Total 300 100 Balance -60 -100 250 Intake & Output: Intake & Output 05/12/21 05/12/21 05/12/21 05:59 13:59 21:59 Intake Total 240 250 Output Total 300 100 Balance -60 -100 250 Intake: IV 250 Zithromax 500 mg In Dextrose 5% 250 in Water 250 ml @ 250 mls/hr IV Q24H [facility] Rx#:[id number] Oral 240 Output: Void Amount 0 100 Urine/Stool Mix 300 Other: Meal Breakfast Percent of Meal Consumed 75% Urine Appearance Clear Urine Color Bright Yellow Stool Size Small Stool Color Brown Brown Stool Consistency Watery Liquid # Bowel Movements 1 Additional findings Additional findings: GEN WDWN overweight WF in NAD CV RRR Lungs good airmovement. scatter rhonchi only no wheezing. no crackles Calves no edema Skin warm and dry mentation alert and oriented pt tolerating high flow. OBJ DATA Labs CBC & Chem 7: 05/12/21 05:31 05/12/21 05:30 Labs: Abnormal Lab Results 05/12/21 05/12/21 05/12/21 05:31 05:30 05:30 MPV 11.0 H Neut % (Auto) 81.9 H Lymph % (Auto) 13.7 L Lymph # (Auto) 0.88 L D-Dimer 1.19 H Creatinine Glucose 149 H Phosphorus GGT AST 46 H ALT 95 H Lactate Dehydrogenase C-Reactive Protein 3.40 H Albumin 3.1 L Albumin/Globulin Ratio 0.9 L Procalcitonin TSH 0.24 L 05/11/21 05/11/21 05/10/21 05:23 05:23 05:03 MPV 11.1 H Neut % (Auto) Lymph % (Auto) Lymph # (Auto) 1.01 L D-Dimer Creatinine 0.5 L Glucose 145 H Phosphorus GGT AST ALT Lactate Dehydrogenase C-Reactive Protein 7.70 H Albumin 3.1 L Albumin/Globulin Ratio Procalcitonin 0.13 H TSH 05/10/21 05/10/21 05/09/21 05:02 05:02 13:08 MPV 11.1 H Neut % (Auto) 85.9 H Lymph % (Auto) 10.7 L Lymph # (Auto) 0.70 L D-Dimer Creatinine 0.5 L Glucose 159 H Phosphorus 2.3 L GGT 63 H AST 154 H ALT 130 H Lactate Dehydrogenase 536 H C-Reactive Protein 12.20 H Albumin Albumin/Globulin Ratio 0.9 L Procalcitonin 0.13 H TSH 05/09/21 13:08 MPV Neut % (Auto) Lymph % (Auto) Lymph # (Auto) D-Dimer Creatinine Glucose Phosphorus GGT AST ALT Lactate Dehydrogenase C-Reactive Protein 12.10 H Albumin Albumin/Globulin Ratio Procalcitonin TSH Meds: Medications Acetaminophen (Acetaminophen 325 Mg Tablet) 650 mg PO Q6HP PRN; Protocol PRN Reason: Per Pain Protocol/Fever > 101 Last Admin: 05/10/21 20:02 Dose: 650 mg Documented by: Benzonatate (Benzonatate 100 Mg Capsule) 100 mg PO TIDP PRN PRN Reason: Cough Last Admin: 05/11/21 20:26 Dose: 100 mg Documented by: Ceftriaxone Sodium (Ceftriaxone 1 Gm Vial) 1 gm IV Q24H [facility] Last Admin: 05/12/21 08:01 Dose: 1 gm Documented by: Dexamethasone (Dexamethasone 10 Mg/Ml Vial) 6 mg IV Q24H [facility] Last Admin: 05/11/21 20:26 Dose: 6 mg Documented by: Enoxaparin Sodium (Enoxaparin 40 Mg/0.4 Ml Syringe) 40 mg SQ BID [facility] Last Admin: 05/12/21 08:01 Dose: 40 mg Documented by: Guaifenesin/Codeine Phosphate (Guaifenesin/Codeine 10 Ml Udc) 5 ml PO Q4HP PRN PRN Reason: Cough Last Admin: 05/11/21 20:26 Dose: 5 ml Documented by: Lactulose (Lactulose 20 Gm/30 Ml Oral.Lana) 10 gm PO DAILYP PRN PRN Reason: Constipation Levothyroxine Sodium (Levothyroxine 25 Mcg Tablet) 25 mcg PO [facility] Last Admin: 05/12/21 08:01 Dose: 25 mcg Documented by: Lisinopril (Lisinopril 10 Mg Tablet) 10 mg PO [facility] Last Admin: 05/12/21 08:01 Dose: 10 mg Documented by: Ondansetron HCl (Ondansetron 4 Mg/2 Ml Vial) 4 mg IV Q4HP PRN; Protocol PRN Reason: Nausea And Vomiting Pantoprazole Sodium (Pantoprazole 40 Mg Tablet) 40 mg PO [facility] Last Admin: 05/12/21 08:01 Dose: 40 mg Documented by: Senna (Sennosides 1 Tablet) 2 tab PO HSP PRN PRN Reason: Constipation Sodium Chloride (0.9 % Sodium Chloride 10 Ml Syringe) 10 ml IV Q8 [facility] Last Admin: 05/12/21 15:08 Dose: 10 ml Documented by: A/P Assessment and plan (1) Pneumonia due to 2019 novel coronavirus: Status: Acute Comment: hyoxemia is stable though still severe. cont high flow. repeat CXR in the morning start lovenox 40 mg sQ bid dimer and crp in morning. pt has completed tociluzimab decreased dimer and CRP. decreased cough oxygen requirement I think pt has passed the worst part of illness. increase activity as able. start therapy (2) Obesity (BMI 30-39.9): Status: Acute Comment: currently loss of smell taste and appetite. encourage diet supplement to maintain adequate calories to fight infection pt doing better on diet now. Time Spent With Patient Time: Total time spent is greater than 50% in coordination of care (as documented) at patient's floor/unit and/or counseling patient: 35 QUALITY VTE Deep Vein Thrombosis/Pulmonary Embolism Present on Admission: No
[2021-05-12] MEDS: DEXAMETHASONE 10 MG/ML VIAL IV SCH (19:59)
[2021-05-12] MEDS: BENZONATATE 100 MG CAPSULE PO PRN (19:59)
[2021-05-12] MEDS: guaiFENesin/CODEINE 10 ML UDC PO PRN (19:59)
[2021-05-12] MEDS: LACTOBACILLUS 1 CAPSULE PO SCH (19:59)
[2021-05-12] MEDS: ACETAMINOPHEN 325 MG TABLET PO PRN (21:51)
[2021-05-13] MEDS: 0.9 % SODIUM CHLORIDE 10 ML SYRINGE IV SCH ×3 (05:51→21:41)
[2021-05-13] MEDS: PANTOPRAZOLE 40 MG TABLET PO SCH (07:45)
[2021-05-13] MEDS: LEVOTHYROXINE 25 MCG TABLET PO SCH (07:45)
[2021-05-13] MEDS: LISINOPRIL 10 MG TABLET PO SCH (08:54)
[2021-05-13] MEDS: ENOXAPARIN 40 MG/0.4 ML SYRINGE SQ SCH (08:54)
[2021-05-13] MEDS: LACTOBACILLUS 1 CAPSULE PO SCH ×2 (08:54→21:42)
[2021-05-13] MEDS: BENZONATATE 100 MG CAPSULE PO PRN ×2 (08:54→21:41)
[2021-05-13] MEDS ORDERED: LACTATED RINGERS 1,000 ML IV ONE (10:24)
[2021-05-13] MEDS ORDERED: LOPERAMIDE 2 MG CAPSULE PO PRN (15:46)
--- NOTE | 2021-05-13 15:52 | Internal Med Progress Note ---
SUBJECTIVE Subjective Patient information: Note initiated : 05/13/21 at 3:47 pm Service Date, if different from initiated Date: [] Patient: Nelly Villegas 66 y/o F admitted on 05/09/21 for shortness of breath, low O2 sats. Chief Complaint: [] Principal diagnosis: Covid 19 Pneumonia Interval history: states breathing is much better feels ok now just bored with prolonged illness. RT notes still having periods of hypoxemia requiring increased FIO2 to 70% but brief. better prone or on side diarrhea this morning and no more. Pt had low urine output today Constitutional Vitals: Vital Signs Temp Pulse Resp BP Pulse Ox 97.3 F 76 24 H 105/87 95 05/13/21 12:02 05/13/21 14:47 05/13/21 14:47 05/13/21 14:03 05/13/21 14:47 Period Temp Pulse Resp BP Sys/Farias Pulse Ox Last 24 Hr 96.4 F-97.7 F 49-76 14-31 105-150/65-87 89-100 Intake and Output 05/13/21 05/13/21 05/13/21 05:59 13:59 21:59 Intake Total 200 1000 Output Total 150 500 125 Balance 50 500 -125 Intake & Output: Intake & Output 05/13/21 05/13/21 05/13/21 05:59 13:59 21:59 Intake Total 200 1000 Output Total 150 500 125 Balance 50 500 -125 Intake: IV 1000 Lactated Ringers 1,000 ml @ 1000 Wide Open IV BOLUS ONE Rx#: [id number] Oral 200 Output: Void Amount 150 50 125 Urine/Stool Mix 450 Other: Meal Breakfast Lunch Percent of Meal Consumed 75% 75% Feeding Ability Independent Assist with Tray Set Up Urine Appearance Clear Clear Cloudy Urine Color Dark Yellow Bright Yellow Dark Susy Stool Color Brown Stool Consistency Liquid # Bowel Movements 50 Additional findings Additional findings: CV RRR Lungs CTA ABD soft NT Calves no edema Skin warm and dry ment alert and oriented. OBJ DATA Labs CBC & Chem 7: 05/12/21 05:31 05/12/21 05:30 Labs: Abnormal Lab Results 05/13/21 05/13/21 05/12/21 05:23 05:23 05:31 MPV 11.0 H Neut % (Auto) 81.9 H Lymph % (Auto) 13.7 L Lymph # (Auto) 0.88 L D-Dimer 1.20 H Creatinine Glucose AST ALT C-Reactive Protein 1.60 H Albumin Albumin/Globulin Ratio TSH 05/12/21 05/12/21 05/11/21 05:30 05:30 05:23 MPV Neut % (Auto) Lymph % (Auto) Lymph # (Auto) D-Dimer 1.19 H Creatinine 0.5 L Glucose 149 H 145 H AST 46 H ALT 95 H C-Reactive Protein 3.40 H 7.70 H Albumin 3.1 L 3.1 L Albumin/Globulin Ratio 0.9 L TSH 0.24 L 05/11/21 05:23 MPV 11.1 H Neut % (Auto) Lymph % (Auto) Lymph # (Auto) 1.01 L D-Dimer Creatinine Glucose AST ALT C-Reactive Protein Albumin Albumin/Globulin Ratio TSH Meds: Medications Acetaminophen (Acetaminophen 325 Mg Tablet) 650 mg PO Q6HP PRN; Protocol PRN Reason: Per Pain Protocol/Fever > 101 Last Admin: 05/12/21 21:51 Dose: 650 mg Documented by: Benzonatate (Benzonatate 100 Mg Capsule) 100 mg PO TIDP PRN PRN Reason: Cough Last Admin: 05/13/21 08:54 Dose: 100 mg Documented by: Dexamethasone (Dexamethasone 10 Mg/Ml Vial) 6 mg IV Q24H [facility] Last Admin: 05/12/21 19:59 Dose: 6 mg Documented by: Enoxaparin Sodium (Enoxaparin 40 Mg/0.4 Ml Syringe) 80 mg SQ BID [facility] Guaifenesin/Codeine Phosphate (Guaifenesin/Codeine 10 Ml Udc) 5 ml PO Q4HP PRN PRN Reason: Cough Last Admin: 05/12/21 19:59 Dose: 5 ml Documented by: Lactobacillus Rhamnosus (Lactobacillus 1 Capsule) 1 cap PO BID [facility] Last Admin: 05/13/21 08:54 Dose: 1 cap Documented by: Levothyroxine Sodium (Levothyroxine 25 Mcg Tablet) 25 mcg PO QAMAC [facility] Last Admin: 05/13/21 07:45 Dose: 25 mcg Documented by: Lisinopril (Lisinopril 10 Mg Tablet) 10 mg PO QAM [facility] Last Admin: 05/13/21 08:54 Dose: 10 mg Documented by: Loperamide HCl (Loperamide 2 Mg Capsule) 2 mg PO PRN PRN PRN Reason: Diarrhea Ondansetron HCl (Ondansetron 4 Mg/2 Ml Vial) 4 mg IV Q4HP PRN; Protocol PRN Reason: Nausea And Vomiting Pantoprazole Sodium (Pantoprazole 40 Mg Tablet) 40 mg PO QAMAC [facility] Last Admin: 05/13/21 07:45 Dose: 40 mg Documented by: Sodium Chloride (0.9 % Sodium Chloride 10 Ml Syringe) 10 ml IV Q8 [facility] Last Admin: 05/13/21 14:39 Dose: 10 ml Documented by: A/P Assessment and plan (1) Pneumonia due to 2019 novel coronavirus: Status: Acute Comment: hyoxemia is stable though still severe. cont high flow. repeat CXR in the morning start lovenox 40 mg sQ bid dimer and crp in morning. pt has completed tociluzimab decreased dimer and CRP. decreased cough oxygen requirement I think pt has passed the worst part of illness. increase activity as able due to increased d dimer will go with full dose lovenox till that resolves (2) Obesity (BMI 30-39.9): Status: Acute Comment: currently loss of smell taste and appetite. encourage diet supplement to maintain adequate calories to fight infection pt doing better on diet now. (3) Diarrhea: Status: Acute Comment: continue probiotic additional fluid bolus c diff toxin pending ok for imodium Time Spent With Patient Time: Total time spent is greater than 50% in coordination of care (as documented) at patient's floor/unit and/or counseling patient: 35 QUALITY VTE Deep Vein Thrombosis/Pulmonary Embolism Present on Admission: No
--- NOTE | 2021-05-13 16:04 | Internal Med Progress Note ---
SUBJECTIVE Subjective Patient information: Note initiated : 05/13/21 at 3:57 pm Service Date, if different from initiated Date: [] Patient: Nelly Villegas 66 y/o F admitted on 05/09/21 for shortness of breath, low O2 sats. Chief Complaint: [] Principal diagnosis: Covid 19 Pneumonia Interval history: History of present illness: Ms. Villegas is a 66 year old F with a history of hypertension, hypothyroidism, untreated hyperlipidemia who presents to the hospital with worsening dyspnea. History is obtained in discussing with the patient as well as the ED physician. The patient states she started feeling ill about 10/5 initially with mild URI type symptoms. A few days later she had significant myalgias as well as shortness of breath. Her had similar symptoms and he eventually tested positive for COVID-19. She feels like she is never recovered from that episode. However over the last few days she has become more dyspneic, having a cough that has been unproductive of sputum. Because of the ongoing dyspnea she presented to [facility] care where her sats were in the 50% range. She is referred to the ED. Oxygen saturations were 70% on room air. She is placed on facemask with saturations into the low 90s. Further evaluation in the ED revealed normal white count, normal renal function. Chest x-ray showed bilateral infiltrates and CT of the chest again redemonstrated bilateral pneumonia without pulmonary emboli. SARS-CoV-2 rapid antigen was negative as was Roel PCR. Patient is noted she has lost her sense of taste and smell, has not returned. She has cough without sputum and dyspnea at rest and with exertion. She has had no diarrhea or abdominal pain. No headache, sore throat, vision changes, chest pain or tightness, lower extremity edema, dysuria, easy bruising or bleeding. 05/11 History of present illness: Ms. Villegas is a 66 year old F with a history of hypertension, hypothyroidism, untreated hyperlipidemia who presents to the hospital with worsening dyspnea. History is obtained in discussing with the patient as well as the ED physician. The patient states she started feeling ill about 10/5 initially with mild URI type symptoms. A few days later she had significant myalgias as well as shortness of breath. Her had similar symptoms and he eventually tested positive for COVID-19. She feels like she is never recovered from that episode. However over the last few days she has become more dyspneic, having a cough that has been unproductive of sputum. Because of the ongoing dyspnea she presented to [facility] where her sats were in the 50% range. She is referred to the ED. Oxygen saturations were 70% on room air. She is placed on facemask with saturations into the low 90s. Further evaluation in the ED revealed normal white count, normal renal function. Chest x-ray showed bilateral infiltrates and CT of the chest again redemonstrated bilateral pneumonia without pulmonary emboli. SARS-CoV-2 rapid antigen was negative as was Roel PCR. 05/13 Interval history: states breathing is much better feels ok now just bored with prolonged illness. RT notes still having periods of hypoxemia requiring increased FIO2 to 70% but brief. better prone or on side diarrhea this morning and no more. Pt had low urine output today 05/14 Constitutional Vitals: Vital Signs Temp Pulse Resp BP Pulse Ox 97.3 F 76 24 H 105/87 95 05/13/21 12:02 05/13/21 14:47 05/13/21 14:47 05/13/21 14:03 05/13/21 14:47 Period Temp Pulse Resp BP Sys/Farais Pulse Ox Last 24 Hr 96.4 F-97.7 F 49-76 14-31 105-150/65-87 89-100 Intake and Output 05/13/21 05/13/21 05/13/21 05:59 13:59 21:59 Intake Total 200 1000 Output Total 150 500 125 Balance 50 500 -125 Intake & Output: Intake & Output 05/13/21 05/13/21 05/13/21 05:59 13:59 21:59 Intake Total 200 1000 Output Total 150 500 125 Balance 50 500 -125 Intake: IV 1000 Lactated Ringers 1,000 ml @ 1000 Wide Open IV BOLUS ONE Rx#: [id number] Oral 200 Output: Void Amount 150 50 125 Urine/Stool Mix 450 Other: Meal Breakfast Lunch Percent of Meal Consumed 75% 75% Feeding Ability Independent Assist with Tray Set Up Urine Appearance Clear Clear Cloudy Urine Color Dark Yellow Bright Yellow Dark Susy Stool Color Brown Stool Consistency Liquid # Bowel Movements 50 Exam: general: Alert, Awake, No acute Distress Eyes/N/T: EOMI, Head/Neck: neck supple, CV: RRR, No murmurs, Pulm: Clear b/l, no wheezing/rhonchi/rales Abd: soft, nontender, +BS x4 Ext: no clubbing/cyanosis/edema Neuro: Alert, no focal deficits, moves all extremities, Skin: warm/dry OBJ DATA Labs CBC & Chem 7: 05/12/21 05:31 05/12/21 05:30 Labs: Abnormal Lab Results 05/13/21 05/13/21 05/12/21 05:23 05:23 05:31 MPV 11.0 H Neut % (Auto) 81.9 H Lymph % (Auto) 13.7 L Lymph # (Auto) 0.88 L D-Dimer 1.20 H Creatinine Glucose AST ALT C-Reactive Protein 1.60 H Albumin Albumin/Globulin Ratio TSH 05/12/21 05/12/21 05/11/21 05:30 05:30 05:23 MPV Neut % (Auto) Lymph % (Auto) Lymph # (Auto) D-Dimer 1.19 H Creatinine 0.5 L Glucose 149 H 145 H AST 46 H ALT 95 H C-Reactive Protein 3.40 H 7.70 H Albumin 3.1 L 3.1 L Albumin/Globulin Ratio 0.9 L TSH 0.24 L 05/11/21 05:23 MPV 11.1 H Neut % (Auto) Lymph % (Auto) Lymph # (Auto) 1.01 L D-Dimer Creatinine Glucose AST ALT C-Reactive Protein Albumin Albumin/Globulin Ratio TSH Meds: Medications Acetaminophen (Acetaminophen 325 Mg Tablet) 650 mg PO Q6HP PRN; Protocol PRN Reason: Per Pain Protocol/Fever > 101 Last Admin: 05/12/21 21:51 Dose: 650 mg Documented by: Benzonatate (Benzonatate 100 Mg Capsule) 100 mg PO TIDP PRN PRN Reason: Cough Last Admin: 05/13/21 08:54 Dose: 100 mg Documented by: Dexamethasone (Dexamethasone 10 Mg/Ml Vial) 6 mg IV Q24H [facility] Last Admin: 05/12/21 19:59 Dose: 6 mg Documented by: Enoxaparin Sodium (Enoxaparin 80 Mg/0.8 Ml Syringe) 80 mg SQ BID [facility] Guaifenesin/Codeine Phosphate (Guaifenesin/Codeine 10 Ml Udc) 5 ml PO Q4HP PRN PRN Reason: Cough Last Admin: 05/12/21 19:59 Dose: 5 ml Documented by: Lactobacillus Rhamnosus (Lactobacillus 1 Capsule) 1 cap PO BID [facility] Last Admin: 05/13/21 08:54 Dose: 1 cap Documented by: Levothyroxine Sodium (Levothyroxine 25 Mcg Tablet) 25 mcg PO QAMAC [facility] Last Admin: 05/13/21 07:45 Dose: 25 mcg Documented by: Lisinopril (Lisinopril 10 Mg Tablet) [facility] [place] Last Admin: 05/13/21 08:54 Dose: 10 mg Documented by: Loperamide HCl (Loperamide 2 Mg Capsule) 2 mg PO PRN PRN PRN Reason: Diarrhea Ondansetron HCl (Ondansetron 4 Mg/2 Ml Vial) 4 mg IV Q4HP PRN; Protocol PRN Reason: Nausea And Vomiting Pantoprazole Sodium (Pantoprazole 40 Mg Tablet) [facility] Last Admin: 05/13/21 07:45 Dose: 40 mg Documented by: Sodium Chloride (0.9 % Sodium Chloride 10 Ml Syringe) 10 ml IV Q8 [facility] Last Admin: 05/13/21 14:39 Dose: 10 ml Documented by: A/P Narrative A/P Narrative: A: *Covid pneumonia: -CRP improving *Acute hypoxic respite failure: -on 30lpm/50% *Transaminitis: 2/2 above *HTN: *Obesity: *Hypothyroidism: *Diarrhea: P: -Dex, s/p Tociluzimab -O2 support, wean as able -proning/mobilization/oob to chair -IS/acapella, prn neb -cdiff pending -cont home ACEI - -ppx: Lovenox bid full code Time Spent With Patient Time: Total time spent is greater than 50% in coordination of care (as documented) at patient's floor/unit and/or counseling patient: QUALITY VTE Deep Vein Thrombosis/Pulmonary Embolism Present on Admission: No
[2021-05-13] MEDS: guaiFENesin/CODEINE 10 ML UDC PO PRN (21:40)
[2021-05-13] MEDS: DEXAMETHASONE 10 MG/ML VIAL IV SCH (21:41)
[2021-05-13] MEDS: ENOXAPARIN 80 MG/0.8 ML SYRINGE SQ SCH (21:41)
[2021-05-14] MEDS: 0.9 % SODIUM CHLORIDE 10 ML SYRINGE IV SCH ×3 (05:12→22:31)
[2021-05-14] MEDS ORDERED: REMDESIVIR 200 MG in 0.9 % SODIUM CHLORIDE 250 ML IV ONE (07:26)
--- NOTE | 2021-05-14 07:27 | Internal Med Progress Note ---
SUBJECTIVE Subjective Patient information: Note initiated : 05/14/21 at 7:24 am Service Date, if different from initiated Date: [] Patient: Nelly Villegas 66 y/o F admitted on 05/09/21 for shortness of breath, low O2 sats. Chief Complaint: [] Principal diagnosis: Covid 19 Pneumonia Interval history: History of present illness: Ms. Villegas is a 66 year old F with a history of hypertension, hypothyroidism, untreated hyperlipidemia who presents to the hospital with worsening dyspnea. History is obtained in discussing with the patient as well as the ED physician. The patient states she started feeling ill about 10/5 initially with mild URI type symptoms. A few days later she had significant myalgias as well as shortness of breath. Her had similar symptoms and he eventually tested positive for COVID-19. She feels like she is never recovered from that episode. However over the last few days she has become more dyspneic, having a cough that has been unproductive of sputum. Because of the ongoing dyspnea she presented to [facility] where her sats were in the 50% range. She is referred to the ED. Oxygen saturations were 70% on room air. She is placed on facemask with saturations into the low 90s. Further evaluation in the ED revealed normal white count, normal renal function. Chest x-ray showed bilateral infiltrates and CT of the chest again redemonstrated bilateral pneumonia without pulmonary emboli. SARS-CoV-2 rapid antigen was negative as was Roel PCR. Patient is noted she has lost her sense of taste and smell, has not returned. She has cough without sputum and dyspnea at rest and with exertion. She has had no diarrhea or abdominal pain. No headache, sore throat, vision changes, chest pain or tightness, lower extremity edema, dysuria, easy bruising or bleeding. 05/11 History of present illness: Ms. Villegas is a 66 year old F with a history of hypertension, hypothyroidism, untreated hyperlipidemia who presents to the hospital with worsening dyspnea. History is obtained in discussing with the patient as well as the ED physician. The patient states she started feeling ill about 10/5 initially with mild URI type symptoms. A few days later she had significant myalgias as well as shortness of breath. Her had similar symptoms and he eventually tested positive for COVID-19. She feels like she is never recovered from that episode. However over the last few days she has become more dyspneic, having a cough that has been unproductive of sputum. Because of the ongoing dyspnea she presented to [facility] where her sats were in the 50% range. She is referred to the ED. Oxygen saturations were 70% on room air. She is placed on facemask with saturations into the low 90s. Further evaluation in the ED revealed normal white count, normal renal function. Chest x-ray showed bilateral infiltrates and CT of the chest again redemonstrated bilateral pneumonia without pulmonary emboli. SARS-CoV-2 rapid antigen was negative as was Roel PCR. 05/13 Interval history: states breathing is much better feels ok now just bored with prolonged illness. RT notes still having periods of hypoxemia requiring increased FIO2 to 70% but brief. better prone or on side diarrhea this morning and no more. Pt had low urine output today 05/14 Patient slept all right. No overnight events. Patient's oxygen requirement flow is down to 35/35. She has a cough which is occasionally productive. Shortness of breath slowly improving. Review of Systems: denies headache/fever/chills/nausea/vomiting/chest or abdominal pain/diarrhea. Otherwise see above. Constitutional Vitals: Vital Signs Temp Pulse Resp BP Pulse Ox 96.5 F L 48 L 21 156/73 95 05/14/21 04:01 05/14/21 06:14 05/14/21 06:14 05/14/21 06:02 05/14/21 06:14 Period Temp Pulse Resp BP Sys/Farias Pulse Ox Last 24 Hr 96.5 F-98.9 F 48-76 17-33 105-156/61-93 89-100 Intake and Output 05/13/21 05/14/21 05/14/21 21:59 05:59 13:59 Intake Total 950 240 Output Total 225 425 500 Balance 725 -185 -500 Weight 85.457 kg Intake & Output: Intake & Output 05/13/21 05/14/21 05/14/21 21:59 05:59 13:59 Intake Total 950 240 Output Total 225 425 500 Balance 725 -185 -500 Weight 85.457 kg Intake: Nourishment/Supplement quantity 350 (ml) Oral 600 240 Output: Void Amount 225 425 500 Other: Meal Dinner Percent of Meal Consumed 50% Feeding Ability Assist with Tray Set Up Nourishment/Supplement name jus Urine Appearance Clear Clear Clear Urine Color Dark Yellow Bright Yellow Bright Yellow Exam: general: Alert, Awake, No acute Distress Eyes/N/T: EOMI, Head/Neck: neck supple, CV: RRR, No murmurs, Pulm: fine rales b/l, no wheezing Abd: soft, nontender, +BS x4 Ext: no clubbing/cyanosis/edema Neuro: Alert, no focal deficits, moves all extremities, Skin: warm/dry OBJ DATA Labs CBC & Chem 7: 05/12/21 05:31 05/12/21 05:30 Labs: Abnormal Lab Results 05/13/21 05/13/21 05/12/21 05:23 05:23 05:31 MPV 11.0 H Neut % (Auto) 81.9 H Lymph % (Auto) 13.7 L Lymph # (Auto) 0.88 L D-Dimer 1.20 H Creatinine Glucose AST ALT C-Reactive Protein 1.60 H Albumin Albumin/Globulin Ratio TSH 05/12/21 05/12/21 05/11/21 05:30 05:30 05:23 MPV Neut % (Auto) Lymph % (Auto) Lymph # (Auto) D-Dimer 1.19 H Creatinine 0.5 L Glucose 149 H 145 H AST 46 H ALT 95 H C-Reactive Protein 3.40 H 7.70 H Albumin 3.1 L 3.1 L Albumin/Globulin Ratio 0.9 L TSH 0.24 L 05/11/21 05:23 MPV 11.1 H Neut % (Auto) Lymph % (Auto) Lymph # (Auto) 1.01 L D-Dimer Creatinine Glucose AST ALT C-Reactive Protein Albumin Albumin/Globulin Ratio TSH Meds: Medications Acetaminophen (Acetaminophen 325 Mg Tablet) 650 mg PO Q6HP PRN; Protocol PRN Reason: Per Pain Protocol/Fever > 101 Last Admin: 05/12/21 21:51 Dose: 650 mg Documented by: Benzonatate (Benzonatate 100 Mg Capsule) 100 mg PO TIDP PRN PRN Reason: Cough Last Admin: 05/13/21 21:41 Dose: 100 mg Documented by: Dexamethasone (Dexamethasone 10 Mg/Ml Vial) 6 mg IV Q24H [facility] Last Admin: 05/13/21 21:41 Dose: 6 mg Documented by: Enoxaparin Sodium (Enoxaparin 80 Mg/0.8 Ml Syringe) 80 mg SQ BID [facility] Last Admin: 05/13/21 21:41 Dose: 80 mg Documented by: Guaifenesin/Codeine Phosphate (Guaifenesin/Codeine 10 Ml Udc) 5 ml PO Q4HP PRN PRN Reason: Cough Last Admin: 05/13/21 21:40 Dose: 5 ml Documented by: Lactobacillus Rhamnosus (Lactobacillus 1 Capsule) 1 cap PO BID [facility] Last Admin: 05/13/21 21:42 Dose: 1 cap Documented by: Levothyroxine Sodium (Levothyroxine 25 Mcg Tablet) 25 mcg PO QAMAC [facility] Last Admin: 05/13/21 07:45 Dose: 25 mcg Documented by: Lisinopril (Lisinopril 10 Mg Tablet) 10 mg PO QAM [facility] Last Admin: 05/13/21 08:54 Dose: 10 mg Documented by: Loperamide HCl (Loperamide 2 Mg Capsule) 2 mg PO PRN PRN PRN Reason: Diarrhea Ondansetron HCl (Ondansetron 4 Mg/2 Ml Vial) 4 mg IV Q4HP PRN; Protocol PRN Reason: Nausea And Vomiting Pantoprazole Sodium (Pantoprazole 40 Mg Tablet) 40 mg PO QAMAC [facility] Last Admin: 05/13/21 07:45 Dose: 40 mg Documented by: Sodium Chloride (0.9 % Sodium Chloride 10 Ml Syringe) 10 ml IV Q8 [facility] Last Admin: 05/14/21 05:12 Dose: 10 ml Documented by: A/P Narrative A/P Narrative: A: *Covid pneumonia: -CRP improving *Acute hypoxic respite failure: -on 35lpm/50% *Transaminitis: 2/2 above, improved *HTN: *Obesity: *Hypothyroidism: *Diarrhea: c.diff neg P: -Dex/Rem, s/p Tociluzimab -O2 support, wean as able -proning/mobilization/oob to chair -IS/acapella, prn neb -cont home ACEI -ot -ppx: Lovenox bid full code Time Spent With Patient Time: Total time spent is greater than 50% in coordination of care (as documented) at patient's floor/unit and/or counseling patient: QUALITY VTE Deep Vein Thrombosis/Pulmonary Embolism Present on Admission: No
[2021-05-14] MEDS ORDERED: REMDESIVIR 100 MG in 0.9 % SODIUM CHLORIDE 250 ML IV SCH (07:30)
[2021-05-14] MEDS: LEVOTHYROXINE 25 MCG TABLET PO SCH (08:13)
[2021-05-14] MEDS: LISINOPRIL 10 MG TABLET PO SCH (08:13)
[2021-05-14] MEDS: LACTOBACILLUS 1 CAPSULE PO SCH ×2 (08:13→21:41)
[2021-05-14] MEDS: PANTOPRAZOLE 40 MG TABLET PO SCH (08:13)
[2021-05-14] MEDS: guaiFENesin/CODEINE 10 ML UDC PO PRN ×2 (08:45→21:41)
[2021-05-14] MEDS: ENOXAPARIN 80 MG/0.8 ML SYRINGE SQ SCH ×2 (10:53→21:41)
[2021-05-14] MEDS: BENZONATATE 100 MG CAPSULE PO PRN (10:58)
[2021-05-14] MEDS: DEXAMETHASONE 10 MG/ML VIAL IV SCH (21:43)
[2021-05-15] MEDS: 0.9 % SODIUM CHLORIDE 10 ML SYRINGE IV SCH ×3 (05:27→20:29)
[2021-05-15] MEDS: LEVOTHYROXINE 25 MCG TABLET PO SCH (06:47)
[2021-05-15] MEDS: PANTOPRAZOLE 40 MG TABLET PO SCH (06:47)
--- NOTE | 2021-05-15 07:43 | Internal Med Progress Note ---
SUBJECTIVE Subjective Patient information: Note initiated : 05/15/21 at 7:42 am Service Date, if different from initiated Date: [] Patient: Nelly Villegas 66 y/o F admitted on 05/09/21 for shortness of breath, low O2 sats. Chief Complaint: [] Principal diagnosis: Covid 19 Pneumonia Interval history: History of present illness: Ms. Villegas is a 66 year old F with a history of hypertension, hypothyroidism, untreated hyperlipidemia who presents to the hospital with worsening dyspnea. History is obtained in discussing with the patient as well as the ED physician. The patient states she started feeling ill about 10/5 initially with mild URI type symptoms. A few days later she had significant myalgias as well as shortness of breath. Her had similar symptoms and he eventually tested positive for COVID-19. She feels like she is never recovered from that episode. However over the last few days she has become more dyspneic, having a cough that has been unproductive of sputum. Because of the ongoing dyspnea she presented to [facility] care where her sats were in the 50% range. She is referred to the ED. Oxygen saturations were 70% on room air. She is placed on facemask with saturations into the low 90s. Further evaluation in the ED revealed normal white count, normal renal function. Chest x-ray showed bilateral infiltrates and CT of the chest again redemonstrated bilateral pneumonia without pulmonary emboli. SARS-CoV-2 rapid antigen was negative as was Roel PCR. Patient is noted she has lost her sense of taste and smell, has not returned. She has cough without sputum and dyspnea at rest and with exertion. She has had no diarrhea or abdominal pain. No headache, sore throat, vision changes, chest pain or tightness, lower extremity edema, dysuria, easy bruising or bleeding. 05/11 History of present illness: Ms. Villegas is a 66 year old F with a history of hypertension, hypothyroidism, untreated hyperlipidemia who presents to the hospital with worsening dyspnea. History is obtained in discussing with the patient as well as the ED physician. The patient states she started feeling ill about 10/5 initially with mild URI type symptoms. A few days later she had significant myalgias as well as shortness of breath. Her had similar symptoms and he eventually tested positive for COVID-19. She feels like she is never recovered from that episode. However over the last few days she has become more dyspneic, having a cough that has been unproductive of sputum. Because of the ongoing dyspnea she presented to [facility] care where her sats were in the 50% range. She is referred to the ED. Oxygen saturations were 70% on room air. She is placed on facemask with saturations into the low 90s. Further evaluation in the ED revealed normal white count, normal renal function. Chest x-ray showed bilateral infiltrates and CT of the chest again redemonstrated bilateral pneumonia without pulmonary emboli. SARS-CoV-2 rapid antigen was negative as was Roel PCR. 05/13 Interval history: states breathing is much better feels ok now just bored with prolonged illness. RT notes still having periods of hypoxemia requiring increased FIO2 to 70% but brief. better prone or on side diarrhea this morning and no more. Pt had low urine output today 05/14 Patient slept all right. No overnight events. Patient's oxygen requirement flow is down to 35/35. She has a cough which is occasionally productive. Shortness of breath slowly improving. 05/15 Patient feeling better. Has mild cough. Shortness of breath is improving. She is on 30 L of flow 30 FiO2 Review of Systems: denies headache/fever/chills/nausea/vomiting/chest or abdominal pain/diarrhea. Otherwise see above. Constitutional Vitals: Vital Signs Temp Pulse Resp BP Pulse Ox 98.5 F 54 L 19 146/72 96 05/15/21 04:01 05/15/21 06:00 05/15/21 06:00 05/15/21 04:01 05/15/21 06:00 Period Temp Pulse Resp BP Sys/Farias Pulse Ox Last 24 Hr 96.3 F-98.5 F 48-70 15-29 100-146/54-102 86-96 Intake and Output 05/14/21 05/15/21 05/15/21 21:59 05:59 13:59 Intake Total 1120 Output Total 250 600 Balance 870 -600 Weight 86.353 kg Intake & Output: Intake & Output 05/14/21 05/15/21 05/15/21 21:59 05:59 13:59 Intake Total 1120 Output Total 250 600 Balance 870 -600 Weight 86.353 kg Intake: Nourishment/Supplement quantity 240 (ml) Oral 880 Output: Void Amount 250 600 Other: Meal Lunch Percent of Meal Consumed 100% Nourishment/Supplement name Ensure Urine Appearance Clear Clear Urine Color Dark Yellow Pale Exam: general: Alert, Awake, No acute Distress Eyes/N/T: EOMI, Head/Neck: neck supple, CV: RRR, No murmurs, Pulm: fine rales b/l, no wheezing Abd: soft, nontender, +BS x4 Ext: no clubbing/cyanosis/edema Neuro: Alert, no focal deficits, moves all extremities, Skin: warm/dry OBJ DATA Labs CBC & Chem 7: 05/12/21 05:31 05/15/21 05:28 Labs: Abnormal Lab Results 05/13/21 05/13/21 05:23 05:23 D-Dimer 1.20 H C-Reactive Protein 1.60 H Meds: Medications Acetaminophen (Acetaminophen 325 Mg Tablet) 650 mg PO Q6HP PRN; Protocol PRN Reason: Per Pain Protocol/Fever > 101 Last Admin: 05/12/21 21:51 Dose: 650 mg Documented by: Benzonatate (Benzonatate 100 Mg Capsule) 100 mg PO TIDP PRN PRN Reason: Cough Last Admin: 05/14/21 10:58 Dose: 100 mg Documented by: Dexamethasone (Dexamethasone 10 Mg/Ml Vial) 6 mg IV Q24H [facility] Last Admin: 05/14/21 21:43 Dose: 6 mg Documented by: Enoxaparin Sodium (Enoxaparin 80 Mg/0.8 Ml Syringe) 80 mg SQ BID [facility] Last Admin: 05/14/21 21:41 Dose: 80 mg Documented by: Guaifenesin/Codeine Phosphate (Guaifenesin/Codeine 10 Ml Udc) 5 ml PO Q4HP PRN PRN Reason: Cough Last Admin: 05/14/21 21:41 Dose: 5 ml Documented by: REMDESIVIR 100 mg/ Sodium (Chloride) 250 mls @ 500 mls/hr IV Q24H [facility] Stop: 05/18/21 09:29 Lactobacillus Rhamnosus (Lactobacillus 1 Capsule) 1 cap PO BID [facility] Last Admin: 05/14/21 21:41 Dose: 1 cap Documented by: Levothyroxine Sodium (Levothyroxine 25 Mcg Tablet) 25 mcg PO QAMAC [facility] Last Admin: 05/15/21 06:47 Dose: 25 mcg Documented by: Lisinopril (Lisinopril 10 Mg Tablet) 10 mg PO QAM [facility] Last Admin: 05/14/21 08:13 Dose: 10 mg Documented by: Loperamide HCl (Loperamide 2 Mg Capsule) 2 mg PO PRN PRN PRN Reason: Diarrhea Ondansetron HCl (Ondansetron 4 Mg/2 Ml Vial) 4 mg IV Q4HP PRN; Protocol PRN Reason: Nausea And Vomiting Pantoprazole Sodium (Pantoprazole 40 Mg Tablet) 40 mg PO QAMAC [facility] Last Admin: 05/15/21 06:47 Dose: 40 mg Documented by: Sodium Chloride (0.9 % Sodium Chloride 10 Ml Syringe) 10 ml IV Q8 [facility] Last Admin: 05/15/21 05:27 Dose: 10 ml Documented by: A/P Narrative A/P Narrative: A: *Covid pneumonia: -CRP improving *Acute hypoxic respite failure: -on 30lpm/30% *Transaminitis: 2/2 above, improved *HTN: *Obesity: *Hypothyroidism: *Diarrhea: c.diff neg P: -Dex/Rem, s/p Tociluzimab -O2 support, wean as able -proning/mobilization/oob to chair -IS/acapella, prn neb -cont home ACEI -ot -ppx: Lovenox bid full code Time Spent With Patient Time: Total time spent is greater than 50% in coordination of care (as documented) at patient's floor/unit and/or counseling patient: QUALITY VTE Deep Vein Thrombosis/Pulmonary Embolism Present on Admission: No
[2021-05-15 07:51] LABS: ALT/SGPT 100 U/L (<40); AST/SGOT 51 U/L (<32); Albumin 3.4 gm/dL (3.2-5.2); Albumin/Globulin Ratio 1.1 (1.0-2.3); Alkaline Phosphatase 71 U/L (39-117); Bilirubin,Direct < 0.2 mg/dL (0-0.3); Bilirubin,Total 0.4 mg/dL (0.1-1.0); Blood Urea Nitrogen 18 mg/dL (8-23); Calcium 9.1 mg/dL (8.6-10.4); Carbon Dioxide 26 mmol/L (22-30); Chloride 102 mmol/L (96-108); Glomerular Filtration Rate 96; Glucose 134 mg/dL (70-105); Lactate Dehydrogenase 342 U/L (135-225); Phosphorous 2.8 mg/dL (2.5-4.5); Triglycerides 120 mg/dL (<150); Uric Acid 4.9 mg/dL (2.5-8.0)
[2021-05-15] MEDS: REMDESIVIR 100 MG in 0.9 % SODIUM CHLORIDE 250 ML IV SCH (08:41)
[2021-05-15] MEDS: LACTOBACILLUS 1 CAPSULE PO SCH ×2 (08:42→20:29)
[2021-05-15] MEDS: ENOXAPARIN 80 MG/0.8 ML SYRINGE SQ SCH ×2 (08:42→20:29)
[2021-05-15] MEDS: LISINOPRIL 10 MG TABLET PO SCH (08:42)
[2021-05-15] MEDS: BENZONATATE 100 MG CAPSULE PO PRN (08:42)
[2021-05-15] MEDS: DEXAMETHASONE 10 MG/ML VIAL IV SCH (20:29)
[2021-05-15] MEDS: guaiFENesin/CODEINE 10 ML UDC PO PRN (20:33)
[2021-05-16] MEDS: 0.9 % SODIUM CHLORIDE 10 ML SYRINGE IV SCH ×3 (05:53→20:45)
[2021-05-16] MEDS: PANTOPRAZOLE 40 MG TABLET PO SCH (06:59)
[2021-05-16] MEDS: LEVOTHYROXINE 25 MCG TABLET PO SCH (06:59)
[2021-05-16 07:05] LABS: ALT/SGPT 103 U/L (<40); AST/SGOT 52 U/L (<32); Albumin 3.4 gm/dL (3.2-5.2); Albumin/Globulin Ratio 1.1 (1.0-2.3); Alkaline Phosphatase 72 U/L (39-117); Bilirubin,Direct < 0.2 mg/dL (0-0.3); Bilirubin,Total 0.4 mg/dL (0.1-1.0); Blood Urea Nitrogen 21 mg/dL (8-23); Calcium 9.3 mg/dL (8.6-10.4); Carbon Dioxide 24 mmol/L (22-30); Chloride 102 mmol/L (96-108); Glomerular Filtration Rate 101; Glucose 136 mg/dL (70-105); Lactate Dehydrogenase 334 U/L (135-225); Phosphorous 3.3 mg/dL (2.5-4.5); Triglycerides 132 mg/dL (<150); Uric Acid 4.7 mg/dL (2.5-8.0)
--- NOTE | 2021-05-16 07:44 | Internal Med Progress Note ---
SUBJECTIVE Subjective Patient information: Note initiated : 05/16/21 at 7:43 am Service Date, if different from initiated Date: [] Patient: Nelly Villegas 66 y/o F admitted on 05/09/21 for shortness of breath, low O2 sats. Chief Complaint: [] Principal diagnosis: Covid 19 Pneumonia Interval history: History of present illness: Ms. Villegas is a 66 year old F with a history of hypertension, hypothyroidism, untreated hyperlipidemia who presents to the hospital with worsening dyspnea. History is obtained in discussing with the patient as well as the ED physician. The patient states she started feeling ill about 10/5 initially with mild URI type symptoms. A few days later she had significant myalgias as well as shortness of breath. Her had similar symptoms and he eventually tested positive for COVID-19. She feels like she is never recovered from that episode. However over the last few days she has become more dyspneic, having a cough that has been unproductive of sputum. Because of the ongoing dyspnea she presented to [facility] care where her sats were in the 50% range. She is referred to the ED. Oxygen saturations were 70% on room air. She is placed on facemask with saturations into the low 90s. Further evaluation in the ED revealed normal white count, normal renal function. Chest x-ray showed bilateral infiltrates and CT of the chest again redemonstrated bilateral pneumonia without pulmonary emboli. SARS-CoV-2 rapid antigen was negative as was Roel PCR. Patient is noted she has lost her sense of taste and smell, has not returned. She has cough without sputum and dyspnea at rest and with exertion. She has had no diarrhea or abdominal pain. No headache, sore throat, vision changes, chest pain or tightness, lower extremity edema, dysuria, easy bruising or bleeding. 05/11 History of present illness: Ms. Villegas is a 66 year old F with a history of hypertension, hypothyroidism, untreated hyperlipidemia who presents to the hospital with worsening dyspnea. History is obtained in discussing with the patient as well as the ED physician. The patient states she started feeling ill about 10/5 initially with mild URI type symptoms. A few days later she had significant myalgias as well as shortness of breath. Her had similar symptoms and he eventually tested positive for COVID-19. She feels like she is never recovered from that episode. However over the last few days she has become more dyspneic, having a cough that has been unproductive of sputum. Because of the ongoing dyspnea she presented to [facility] where her sats were in the 50% range. She is referred to the ED. Oxygen saturations were 70% on room air. She is placed on facemask with saturations into the low 90s. Further evaluation in the ED revealed normal white count, normal renal function. Chest x-ray showed bilateral infiltrates and CT of the chest again redemonstrated bilateral pneumonia without pulmonary emboli. SARS-CoV-2 rapid antigen was negative as was Roel PCR. 05/13 Interval history: states breathing is much better feels ok now just bored with prolonged illness. RT notes still having periods of hypoxemia requiring increased FIO2 to 70% but brief. better prone or on side diarrhea this morning and no more. Pt had low urine output today 05/14 Patient slept all right. No overnight events. Patient's oxygen requirement flow is down to 35/35. She has a cough which is occasionally productive. Shortness of breath slowly improving. 05/15 Patient feeling better. Has mild cough. Shortness of breath is improving. She is on 30 L of flow 30 FiO2 05/16 Continues to feel better. Breathing much better. On 3 L nasal cannula. Does need more with exertion. Review of Systems: denies headache/fever/chills/nausea/vomiting/chest or abdominal pain/diarrhea. Otherwise see above. Constitutional Vitals: Vital Signs Temp Pulse Resp BP Pulse Ox 98.0 F 57 L 21 120/66 92 05/15/21 22:01 05/16/21 06:00 05/16/21 06:00 05/16/21 06:00 05/16/21 06:00 Period Temp Pulse Resp BP Sys/Farias Pulse Ox Last 24 Hr 96.7 F-98.0 F 53-74 17-29 93-142/56-77 88-97 Intake and Output 05/15/21 05/16/21 05/16/21 21:59 05:59 13:59 Output Total 600 200 Balance -600 -200 Weight 87.6 kg Intake & Output: Intake & Output 05/15/21 05/16/21 05/16/21 21:59 05:59 13:59 Output Total 600 200 Balance -600 -200 Weight 87.6 kg Output: Void Amount 600 200 Other: Urine Appearance Clear Clear Urine Color Pale Pale Stool Size Small Stool Color Brown Stool Consistency Soft # Voids 1 # Bowel Movements 1 # of times incontinent of 0 Bowels Exam: general: Alert, Awake, No acute Distress Eyes/N/T: EOMI, Head/Neck: neck supple, CV: RRR, No murmurs, Pulm: fine rales b/l, no wheezing Abd: soft, nontender, +BS x4 Ext: no clubbing/cyanosis/edema Neuro: Alert, no focal deficits, moves all extremities, Skin: warm/dry OBJ DATA Labs CBC & Chem 7: 05/12/21 05:31 05/16/21 05:47 Labs: Abnormal Lab Results 05/16/21 05/15/21 05/15/21 05:47 05:29 05:28 D-Dimer 0.82 H Creatinine 0.5 L Glucose 136 H 134 H GGT 73 H 67 H AST 52 H 51 H ALT 103 H 100 H Lactate Dehydrogenase 334 H 342 H C-Reactive Protein 05/13/21 05/13/21 05:23 05:23 D-Dimer 1.20 H Creatinine Glucose GGT AST ALT Lactate Dehydrogenase C-Reactive Protein 1.60 H Meds: Medications Acetaminophen (Acetaminophen 325 Mg Tablet) 650 mg PO Q6HP PRN; Protocol PRN Reason: Per Pain Protocol/Fever > 101 Last Admin: 05/12/21 21:51 Dose: 650 mg Documented by: Benzonatate (Benzonatate 100 Mg Capsule) 100 mg PO TIDP PRN PRN Reason: Cough Last Admin: 05/15/21 08:42 Dose: 100 mg Documented by: Dexamethasone (Dexamethasone 10 Mg/Ml Vial) 6 mg IV Q24H [facility] Last Admin: 05/15/21 20:29 Dose: 6 mg Documented by: Enoxaparin Sodium (Enoxaparin 80 Mg/0.8 Ml Syringe) 80 mg SQ BID [facility] Last Admin: 05/15/21 20:29 Dose: 80 mg Documented by: Guaifenesin/Codeine Phosphate (Guaifenesin/Codeine 10 Ml Udc) 5 ml PO Q4HP PRN PRN Reason: Cough Last Admin: 05/15/21 20:33 Dose: 5 ml Documented by: REMDESIVIR 100 mg/ Sodium (Chloride) 250 mls @ 500 mls/hr IV Q24H [facility] Stop: 05/18/21 09:29 Last Infusion: 05/15/21 09:15 Dose: Infused Documented by: Lactobacillus Rhamnosus (Lactobacillus 1 Capsule) 1 cap PO BID [facility] Last Admin: 05/15/21 20:29 Dose: 1 cap Documented by: Levothyroxine Sodium ([facility] 25 Mcg Tablet) [facility] Admin: 05/16/21 06:59 Dose: 25 mcg Documented by: Lisinopril ([facility]op[facility] 10 Mg Tablet) [facility] Last Admin: 05/15/21 08:42 Dose: 10 mg Documented by: Loperamide HCl (Loperamide 2 Mg Capsule) 2 mg PO PRN PRN PRN Reason: Diarrhea Ondansetron HCl (Ondansetron 4 Mg/2 Ml Vial) 4 mg IV Q4HP PRN; Protocol PRN Reason: Nausea And Vomiting Pantoprazole Sodium (Pantoprazole 40 Mg Tablet) 40 mg PO [facility] Last Admin: 05/16/21 06:59 Dose: 40 mg Documented by: Sodium Chloride (0.9 % Sodium Chloride 10 Ml Syringe) 10 ml IV Q8 [facility] Last Admin: 05/16/21 05:53 Dose: 10 ml Documented by: A/P Narrative A/P Narrative: A: *Covid pneumonia: -CRP improving *Acute hypoxic respite failure: -on 3L NC *Transaminitis: 2/2 above, improved *HTN: *Obesity: *Hypothyroidism: *Diarrhea: c.diff neg P: -Dex/Rem, s/p Tociluzimab -O2 support, wean as able -proning/mobilization/oob to chair -IS/acapella, prn neb -cont home ACEI -ot -ppx: Lovenox bid full code Time Spent With Patient Time: Total time spent is greater than 50% in coordination of care (as documented) at patient's floor/unit and/or counseling patient: QUALITY VTE Deep Vein Thrombosis/Pulmonary Embolism Present on Admission: No
[2021-05-16] MEDS: LISINOPRIL 10 MG TABLET PO SCH (08:45)
[2021-05-16] MEDS: ENOXAPARIN 80 MG/0.8 ML SYRINGE SQ SCH ×2 (08:45→19:24)
[2021-05-16] MEDS: LACTOBACILLUS 1 CAPSULE PO SCH ×2 (08:45→19:24)
[2021-05-16] MEDS: REMDESIVIR 100 MG in 0.9 % SODIUM CHLORIDE 250 ML IV SCH (08:46)
--- NOTE | 2021-05-16 09:11 | Discharge Summary ---
Discharge Provider Provider Patient information: Note initiated : 05/16/21 at 9:10 am Service Date, if different from initiated Date: [] Patient: Nelly Villegas 66 y/o F admitted on 05/09/21 for shortness of breath, low O2 sats. Chief Complaint: [] Date of admission: 05/09/21 20:08 Discharge date: 05/17/21 Primary care physician: OMKAR Booth Consults: 05/09/21 Consult to Physician [CONS] Stat Comment: Consulting Provider: Belinda Iglesias Reason For Exam: Physician to Consult Discharge Meds Discharge Medications Home Medications aspirin 81 mg tablet,delayed release 81 mg PO QDAY 05/23/19 [History Confirmed 05/09/21 Last Taken 05/09/21 08:00] calcium carbonate 600 mg calcium (1,500 mg) tablet 600 mg PO QDAY 05/23/19 [History Confirmed 05/09/21 Last Taken 05/09/21 08:00] cholecalciferol (vitamin D3) 10 mcg (400 unit) capsule 400 unit PO QDAY 05/23/19 [History Confirmed 05/09/21 Last Taken 05/09/21 08:00] vitamin B complex 1 tab PO QDAY 05/23/19 [History Confirmed 05/09/21 Last Taken 05/09/21 08:00] levothyroxine 25 mcg tablet 25 mcg PO QDAY #90 tab 04/06/21 [Rx Confirmed 05/09/21 Last Taken 05/09/21 08:00] lisinopril 10 mg tablet 10 mg PO QAM #30 tab 04/20/21 [Rx Confirmed 05/09/21 Last Taken 05/09/21 08:00] COURSE Hospital Course Hospital course: History of present illness: Ms. Villegas is a 66 year old F with a history of hypertension, hypothyroidism, untreated hyperlipidemia who presents to the hospital with worsening dyspnea. History is obtained in discussing with the patient as well as the ED physician. The patient states she started feeling ill about 10/5 initially with mild URI type symptoms. A few days later she had significant myalgias as well as shortness of breath. Her had similar symptoms and he eventually tested positive for COVID-19. She feels like she is never recovered from that episode. However over the last few days she has become more dyspneic, having a cough that has been unproductive of sputum. Because of the ongoing dyspnea she presented to [facility] care where her sats were in the 50% range. She is referred to the ED. Oxygen saturations were 70% on room air. She is placed on facemask with saturations into the low 90s. Further evaluation in the ED revealed normal white count, normal renal function. Chest x-ray showed bilateral infiltrates and CT of the chest again redemonstrated bilateral pneumonia without pulmonary emboli. SARS-CoV-2 rapid antigen was negative as was Roel PCR. Patient is noted she has lost her sense of taste and smell, has not returned. She has cough without sputum and dyspnea at rest and with exertion. She has had no diarrhea or abdominal pain. No headache, sore throat, vision changes, chest pain or tightness, lower extremity edema, dysuria, easy bruising or bleeding. 05/11 History of present illness: Ms. Villegas is a 66 year old F with a history of hypertension, hypothyroidism, untreated hyperlipidemia who presents to the hospital with worsening dyspnea. History is obtained in discussing with the patient as well as the ED physician. The patient states she started feeling ill about 10/5 initially with mild URI type symptoms. A few days later she had significant myalgias as well as shortness of breath. Her had similar symptoms and he eventually tested positive for COVID-19. She feels like she is never recovered from that episode. However over the last few days she has become more dyspneic, having a cough that has been unproductive of sputum. Because of the ongoing dyspnea she presented to [facility] care where her sats were in the 50% range. She is referred to the ED. Oxygen saturations were 70% on room air. She is placed on facemask with saturations into the low 90s. Further evaluation in the ED revealed normal white count, normal renal function. Chest x-ray showed bilateral infiltrates and CT of the chest again redemonstrated bilateral pneumonia without pulmonary emboli. SARS-CoV-2 rapid antigen was negative as was Roel PCR. 05/13 Interval history: states breathing is much better feels ok now just bored with prolonged illness. RT notes still having periods of hypoxemia requiring increased FIO2 to 70% but brief. better prone or on side diarrhea this morning and no more. Pt had low urine output today 05/14 Patient slept all right. No overnight events. Patient's oxygen requirement flow is down to 35/35. She has a cough which is occasionally productive. Shortness of breath slowly improving. 05/15 Patient feeling better. Has mild cough. Shortness of breath is improving. She is on 30 L of flow 30 FiO2 05/16 Continues to feel better. Breathing much better. On 3 L nasal cannula. Does need more with exertion. 05/17 No changes. Patient doing well. On 2 L nasal cannula. RT to assess home oxygen need. A/P Narrative: A: *Covid pneumonia: *Acute hypoxic respite failure: *Transaminitis: 2/2 above, improved *HTN: *Obesity: *Hypothyroidism: Discharge diagnosis: Covid pneumonia acute hypoxic respite failure Secondary discharge diagnosis: Hypertension obesity hypothyroidism Time Spent with Patient Time attestation: Total time spent providing and/or coordinating discharge services: Time spent: Greater than 30 minutes EXAM Constitutional Vitals: Temp Pulse Resp BP Pulse Ox 97 F 64 25 H 101/77 94 05/16/21 08:01 05/16/21 08:01 05/16/21 08:01 05/16/21 08:01 05/16/21 08:01 Discharge Data Data Completed and Pending Labs on day of discharge: Labs from last 24 hours 05/16/21 05:47 Sodium 138 Potassium 4.6 Chloride 102 Carbon Dioxide 24 Anion Gap 12.0 BUN 21 Creatinine 0.5 L GFR Calculation 101 Glucose 136 H Uric Acid 4.7 Calcium 9.3 Phosphorus 3.3 Magnesium 2.1 Total Bilirubin 0.4 Direct Bilirubin < 0.2 GGT 73 H AST 52 H ALT 103 H Alkaline Phosphatase 72 Lactate Dehydrogenase 334 H Total Protein 6.4 Albumin 3.4 Globulin 3.0 Albumin/Globulin Ratio 1.1 Triglycerides 132 Discharge Plan Patient/Caregiver Discharge Instructions Activity: increase activity as tolerated Diet: Regular Diet Activity Restrictions/Additional Instructions: Patient will need home oxygen for Covid pneumonia Prescriptions: Continued vitamin B complex [B Complex 1] tablet 1 tab PO QDAY RF: 0 aspirin 81 mg tablet,delayed release (DR/EC) 81 mg PO QDAY RF: 0 cholecalciferol (vitamin D3) 400 unit capsule 400 unit capsule 400 unit PO QDAY RF: 0 calcium carbonate 600 mg calcium (1,500 mg) tablet 600 mg PO QDAY RF: 0 lisinopril 10 mg tablet 10 mg PO QAM Qty: 30 RF: 1 levothyroxine 25 mcg tablet 25 mcg PO QDAY Qty: 90 RF: 0 Follow Up Plan Follow up with: Vanessa Montez ARNP [Primary Care Provider] - Patient Disposition: Home, Self-Care Prognosis: Fair Overall status at discharge: patient is progressing back to baseline Discharge Orders: Discharge Order (Routine); Ordered 05/17/21 Ordered By: Dante PAZ VTE Deep Vein Thrombosis/Pulmonary Embolism Present on Admission: No
[2021-05-16] MEDS ORDERED: LOPERAMIDE 2 MG CAPSULE PO PRN (09:32)
[2021-05-16] MEDS ORDERED: BENZONATATE 100 MG CAPSULE PO PRN (09:32)
[2021-05-16] MEDS ORDERED: guaiFENesin/CODEINE 10 ML UDC PO PRN (09:32)
[2021-05-16] MEDS ORDERED: ONDANSETRON 4 MG/2 ML VIAL IV PRN (09:32)
[2021-05-16] MEDS: ACETAMINOPHEN 325 MG TABLET PO PRN (17:46)
[2021-05-16] MEDS ORDERED: DEXAMETHASONE 10 MG/ML VIAL IV SCH (21:00)
[2021-05-17] MEDS: 0.9 % SODIUM CHLORIDE 10 ML SYRINGE IV SCH (04:34)
[2021-05-17 07:06] LABS: ALT/SGPT 87 U/L (<40); AST/SGOT 37 U/L (<32); Albumin 3.5 gm/dL (3.2-5.2); Alkaline Phosphatase 70 U/L (39-117); Bilirubin,Direct < 0.2 mg/dL (0-0.3); Bilirubin,Total 0.4 mg/dL (0.1-1.0)
[2021-05-17] MEDS ORDERED: LEVOTHYROXINE 25 MCG TABLET PO SCH (07:30)
[2021-05-17] MEDS ORDERED: PANTOPRAZOLE 40 MG TABLET PO SCH (07:30)
[2021-05-17 08:21] LABS: POC Creatinine 0.5 mg/dL (0.6-1.2)
[2021-05-17] MEDS: ENOXAPARIN 80 MG/0.8 ML SYRINGE SQ SCH (08:33)
[2021-05-17] MEDS: LACTOBACILLUS 1 CAPSULE PO SCH (08:34)
[2021-05-17] MEDS: ACETAMINOPHEN 325 MG TABLET PO PRN (08:41)
[2021-05-17] MEDS ORDERED: LISINOPRIL 10 MG TABLET PO SCH (09:00)
[2021-05-17] MEDS ORDERED: REMDESIVIR 100 MG in 0.9 % SODIUM CHLORIDE 250 ML IV SCH (09:00)
== END 2021-05-17 13:35 | disposition home or self-care (01) | DRG 177 ==
LOC: ED 12:48 → ICU 20:08 → MEDSUR 05-16 15:10
PROVIDERS: ADMIT Internal Medicine; ATTEND Internal Medicine